=== PATIENT | male | born 1960 | race Caucasian/White ===

== ENCOUNTER 2020-10-01 12:12 | Observation (INO) | payer OTHER ==
[~2020-10-01] VITALS: Ht 177.8 cm; Wt 153.7 kg
[~2020-10-01 12:12] MED LIST: CEPH-264 PO
[2020-10-01 12:48] LABS: BASO % 0 % (0-3); EOS # 0.3 x10^3/uL (0.0-0.7); EOS % 4 % (0-3); HEMATOCRIT 45.1 % (39.0-53.0); HEMOGLOBIN 15.4 g/dL (13.0-17.5); LYMPH # 1.8 x10^3/uL (1.0-4.8); LYMPH % 24 % (24-48); MEAN CORPUSCULAR HEMOGLOBIN 30 pg (25-35); MEAN CORPUSCULAR HGB CONC 34 g/dL (31-37); MEAN CORPUSCULAR VOLUME 88 fL (79-100); MONO # 0.9 x10^3/uL (0.0-1.1); MONO % 12 % (0-9); NEUT # 4.6 x10^3/uL (1.8-7.7); NEUT % 60 % (31-73); PLATELET COUNT 240 x10^3/uL (140-400); RED BLOOD COUNT 5.12 x10^6/uL (4.30-5.70); RED CELL DISTRIBUTION WIDTH 13.4 % (11.5-14.5); WHITE BLOOD COUNT 7.7 x10^3/uL (4.0-11.0)
[2020-10-01 12:54] LABS: CALCIUM 8.9 mg/dL (8.5-10.1); CREATININE 0.8 mg/dL (0.7-1.3); GFR 98.6; POTASSIUM 3.7 mmol/L (3.5-5.1)
[2020-10-01 12:58] LABS: ALBUMIN 3.9 g/dL (3.4-5.0); MAGNESIUM 2.3 mg/dL (1.8-2.4); TOTAL BILIRUBIN 0.9 mg/dL (0.2-1.0); TOTAL PROTEIN 7.7 g/dL (6.4-8.2)
--- NOTE | 2020-10-01 13:00 | RAD ---
INDICATION: Reason: chest pain / Spl. Instructions: / History: COMPARISON: June 2003 FINDINGS: Single view of chest obtained. Enlarged cardiomediastinal silhouette. Left lung base is largely obscured by the overlying cardiac si lhouette with relative haziness at the lung bases. Mild interstitial opacities bilaterally. IMPRESSION: * Enlarged cardiomediastinal Silhouette which can be seen with cardiomegaly and/or pericardial effus ion. * Haziness at the lung bases. A portion of this is likely secondary to overlap of soft tissue struct ures but superimposed atelectasis or infiltrate is not excluded given this finding. There is also rula e mild interstitial opacities bilaterally which can be seen with mild pulmonary vascular congestion o r interstitial infiltrate. Electronically signed by: Crispin Wild MD (10/01/2020 12:57 PM) [id number]
--- NOTE | 2020-10-01 13:40 | EKG ---
[facility] [address] [place] [address] Test Date: 2020-10-01 Test Time: 12:18:00 Pat Name: LD BAIN Department: Room: Gender: M City Councilman: : 1960 Requested By: MIYA DE DIOS Order Number: [id number] Reading MD: Measurements Intervals [place] Rate: 69 P: 48 WI: 198 QRS: 8 QRSD: 88 T: 62 QT: 378 QTc: 406 Interpretive Statements SINUS RHYTHM NORMAL ECG RI6.01 No previous ECG available for comparison
[2020-10-01] MEDS ORDERED: IOHEXOL 350 MG/ML 100 ML VIAL. IV ONE (13:45)
[2020-10-01] MEDS ORDERED: CONTRAST GIVEN. MC PRN (13:45)
--- NOTE | 2020-10-01 14:42 | RAD ---
EXAM: CT angiography of the chest with intravenous contrast. HISTORY: Chest pain. Hypertension. TECHNIQUE: Computed tomographic images of the chest were obtained following the administration of int ravenous contrast according to angiography protocol. Multiplanar reformatting was performed and three dimensional maximum intensity projection images were obtained. *One or more of the following individualized dose reduction techniques were utilized for this examina tion: 1. Automated exposure control. 2. Adjustment of the mA and/or kV according to patient size. 3. Use of iterative reconstruction technique. COMPARISON: None. FINDINGS: There is no evidence of pulmonary embolism. There is no evidence of aortic aneurysm or aort ic dissection. There is a standard aortic arch branching pattern. The heart is mildly enlarged. There are slightly prominent hilar lymph nodes. These are likely physiologic or reactive. There is no infi ltrate, pleural effusion or pneumothorax. There is linear lingular and medial right middle lobe atele ctasis or scarring. There is also bilateral posterior dependent and basilar atelectasis. There is hep atic steatosis and hepatomegaly. There is a 1.7 cm exophytic lesion along the falx the right kidney, partially included on the [id number]-ry-qhhj. There is a tiny splenule along the inferior aspect of the sp tru. There are multilevel degenerative changes throughout the spine. There is no acute osseous findi ng. IMPRESSION: 1. No acute thoracic finding. 2. Mild cardiomegaly. 3. Hepatic steatosis and hepatomegaly. 4. 1.7 cm exophytic lesion along the upper pole the right kidney, partially included on the field-of- view. The attenuation of this lesion is greater than simple fluid. Renal sonography can be performed to assess for possible complex cystic or solid lesion. Electronically signed by: Mily Hurd MD (10/01/2020 2:40 PM) [facility]
--- NOTE | 2020-10-01 15:23 | PHYS DOC ---
Past Medical History Past Medical History: Diabetes-Type II, High Cholesterol, Hypertension, Other Additional Past Medical Histor: obesity Past Surgical History: Other Additional Past Surgical Histo: multiple back, r rotator cuff Smoking Status: Former Smoker Alcohol Use: Occasionally Drug Use: None General Adult EDM: Chief Complaint: CHEST PAIN HPI: HPI: Patient Is a 60 year old male who presented to ER due to substernal chest pain started today. Chest pain is sharp and stabbing in nature and lasted for a few seconds. The pain was worsened with exertion. Patient denies any cough or fever. Patient has history hypertension, UPON arrival to ER his blood pressure was really elevated. Patient denies any history of blood clot disorder. Patien t has history of high cholesterol. Review of Systems: Review of Systems: Constitutional: Denies fever or chills. [] Eyes: Denies change in visual acuity. [] HENT: Denies nasal congestion or sore throat. [] Respiratory: Denies cough or shortness of breath. [] Cardiovascular: Positive for chest pain, no edema GI: Denies abdominal pain, nausea, vomiting, bloody stools or diarrhea. [] : Denies dysuria. [] Musculoskeletal: Denies back pain or joint pain. [] Integument: Denies rash. [] Neurologic: Denies headache, focal weakness or sensory changes. [] Endocrine: Denies polyuria or polydipsia. [] Lymphatic: Denies swollen glands. [] Psychiatric: Denies depression or anxiety. [] Heart Score: C/O Chest Pain: Yes HEART Score for Chest Pain: HEART Score for Chest Pain Response (Comments) Value History Slighlty/Non-Suspicious 0 Age >45 - < 65 1 Risk Factors >3 Risk Factors or Hx CAD 2 Troponin < Normal Limit 0 Total 3 Risk Factors: Risk Factors: DM, Current or recent (<one month) smoker, HTN, HLP, family history of CAD, obesity. Risk Scores: Score 0 - 3: 2.5% MACE over next 6 weeks - Discharge Home Score 4 - 6: 20.3% MACE over next 6 weeks - Admit for Clinical Observation Score 7 - 10: 72.7% MACE over next 6 weeks - Early Invasive Strategies Current Medications: Current Medications Medications (Trade) Dose Ordered Sig/Lolita Start Time Stop Time Status Last Admin Dose Admin Info (CONTRAST GIVEN -- Rx MONITORING) 1 each PRN DAILY PRN 4/14/21 13:45 10/03/20 13:44 Iohexol (Omnipaque 350 Mg/ml) 100 ml 1X ONCE 10/01/20 13:45 10/01/20 13:46 DC 10/01/20 13:58 100 ML Allergies: Allergies: Allergies Coded Allergies Type Severity Reaction Last Updated Verified No Known Drug Allergies 02/01/16 No Physical Exam: PE: Constitutional: Well developed, well nourished, no acute distress, non-toxic appearance. [] HENT: Normocephalic, atraumatic, bilateral external ears normal, oropharynx moist, no oral exudates, nose normal. [] Eyes: PERRLA, EOMI, conjunctiva normal, no discharge. [] Neck: Normal range of motion, no tenderness, supple, no stridor. [] Cardiovascular:Heart rate regular rhythm, no murmur [] Lungs & Thorax: Bilateral breath sounds clear to auscultation [] Abdomen: Bowel sounds normal, soft, no tenderness, no masses, no pulsatile masses. [] Skin: Warm, dry, no erythema, no rash. [] Back: No tenderness, no CVA tenderness. [] Extremities: No tenderness, no cyanosis, no clubbing, ROM intact, no edema. [] Neurologic: Alert and oriented X 3, normal motor function, normal sensory function, no focal deficits noted. [] Psychologic: Affect normal, judgement normal, mood normal. [] Current Patient Data: Labs: Laboratory Tests Test 10/01/20 12:30 White Blood Count 7.7 x10^3/uL (4.0-11.0) Red Blood Count 5.12 x10^6/uL (4.30-5.70) Hemoglobin 15.4 g/dL (13.0-17.5) Hematocrit 45.1 % (39.0-53.0) Mean Corpuscular Volume 88 fL (79-100) Mean Corpuscular Hemoglobin 30 pg (25-35) Mean Corpuscular Hemoglobin Concent 34 g/dL (31-37) Red Cell Distribution Width 13.4 % (11.5-14.5) Platelet Count 240 x10^3/uL (140-400) Neutrophils (%) (Auto) 60 % (31-73) Lymphocytes (%) (Auto) 24 % (24-48) Monocytes (%) (Auto) 12 % (0-9) H Eosinophils (%) (Auto) 4 % (0-3) H Basophils (%) (Auto) 0 % (0-3) Neutrophils # (Auto) 4.6 x10^3/uL (1.8-7.7) Lymphocytes # (Auto) 1.8 x10^3/uL (1.0-4.8) Monocytes # (Auto) 0.9 x10^3/uL (0.0-1.1) Eosinophils # (Auto) 0.3 x10^3/uL (0.0-0.7) Basophils # (Auto) 0.0 x10^3/uL (0.0-0.2) Sodium Level 146 mmol/L (136-145) H Potassium Level 3.7 mmol/L (3.5-5.1) Chloride Level 106 mmol/L (98-107) Carbon Dioxide Level 26 mmol/L (21-32) Anion Gap 14 (6-14) Blood Urea Nitrogen 13 mg/dL (8-26) Creatinine 0.8 mg/dL (0.7-1.3) Estimated GFR (Cockcroft-Gault) 98.6 BUN/Creatinine Ratio 16 (6-20) Glucose Level 84 mg/dL (70-99) Calcium Level 8.9 mg/dL (8.5-10.1) Magnesium Level 2.3 mg/dL (1.8-2.4) Total Bilirubin 0.9 mg/dL (0.2-1.0) Aspartate Amino Transferase (AST) 30 U/L (15-37) Alanine Aminotransferase (ALT) 65 U/L (16-63) H Alkaline Phosphatase 95 U/L (46-116) Troponin I Quantitative < 0.017 ng/mL (0.000-0.055) TZ-Gak-Q-Type Natriuretic Peptide 185 pg/mL (0-124) H Total Protein 7.7 g/dL (6.4-8.2) Albumin 3.9 g/dL (3.4-5.0) Albumin/Globulin Ratio 1.0 (1.0-1.7) Lipase 102 U/L (73-393) Laboratory Tests 10/01/20 12:30 Laboratory Tests 10/01/20 12:30 Vital Signs: Vital Signs Date Time Temp Pulse Resp B/P (MAP) Pulse Ox O2 Delivery O2 Flow Rate FiO2 10/01/20 12:18 97.9 71 20 193/99 (130) 98 Room Air 97.9 EKG: EKG: EKG was done at 1218, heart rate of 69 bpm, sinus rhythm, normal ST segment , no ST segment elevation, normal axis. Radiology/Procedures: Radiology/Procedures: [][place] [id number] IMAGING REPORT Signed PATIENT: LD BAIN ACCOUNT: [id number] : 1960 LOCATION: ER AGE: 60 SEX: M EXAM STATUS: REG ER ORD. PHYSICIAN: MIYA DE DIOS DO REASON: LARGE MAS ON KIDNEY, FOUND ON CT SCAN CHEST PROCEDURE: RENAL COMPLETE BILATERAL Examination: Ultrasound kidneys HISTORY: History of right renal mass COMPARISON: None available FINDINGS: The right kidney measures 14.7 x 6.7 x 7.5 cm. The left kidney measures 16.3 x 5.1 x 5.8 cm. There is a cystic structure identified in the right kidney measuring 2.5 cm with some echogenicity within could be complex cyst. The urinary bladder is mildly distended. IMPRESSION: 1. Complex cyst measuring 2.5 cm right kidney. Recommend follow-up examination in 3-6 months to document stability. 2. Enlarged appearing bilateral kidneys. Electronically signed by: Zaire Angel MD (10/01/2020 3:58 PM) [id number] DICTATED and SIGNED BY: ZAIRE ANGEL MD DATE: 10/01/20 [id number] [place] [id number] [place], [place] [id number] IMAGING REPORT Signed PATIENT: LD BAIN ACCOUNT: [id number] : 1960 LOCATION: ER AGE: 60 SEX: M EXAM STATUS: REG ER ORD. PHYSICIAN: MIYA DE DIOS DO REASON: chest pain, hypertensive PROCEDURE: CT ANGIOGRAPHY CHEST EXAM: CT angiography of the chest with intravenous contrast. HISTORY: Chest pain. Hypertension. TECHNIQUE: Computed tomographic images of the chest were obtained following the administration of intravenous contrast according to angiography protocol. Multiplanar reformatting was performed and three dimensional maximum intensity projection images were obtained. *One or more of the following individualized dose reduction techniques were utilized for this examination: 1. Automated exposure control. 2. Adjustment of the mA and/or kV according to patient size. 3. Use of iterative reconstruction technique. COMPARISON: None. FINDINGS: There is no evidence of pulmonary embolism. There is no evidence of aortic aneurysm or aortic dissection. There is a standard aortic arch branching pattern. The heart is mildly enlarged. There are slightly prominent hilar lymph nodes. These are likely physiologic or reactive. There is no infiltrate, pleural effusion or pneumothorax. There is linear lingular and medial right middle lobe atelectasis or scarring. There is also bilateral posterior dependent and basilar atelectasis. There is hepatic steatosis and hepatomegaly. There is a 1.7 cm exophytic lesion along the falx the right kidney, partially included on the [id number]-hc-tyyd. There is a tiny splenule along the inferior aspect of the spleen. There are multilevel degenerative changes throughout the spine. There is no acute osseous finding. IMPRESSION: 1. No acute thoracic finding. 2. Mild cardiomegaly. 3. Hepatic steatosis and hepatomegaly. 4. 1.7 cm exophytic lesion along the upper pole the right kidney, partially included on the ohlon-pe-hchx. The attenuation of this lesion is greater than simple fluid. Renal sonography can be performed to assess for possible complex c ystic or solid lesion. Electronically signed by: Mily Parker MD (10/01/2020 2:40 PM) [facility] DICTATED and SIGNED BY: MILY PARKER MD DATE: 10/01/20 [id number] [facility] [address] [place] [address] IMAGING REPORT Signed PATIENT: LD BAIN ACCOUNT: [id number] : 1960 LOCATION: ER AGE: 60 SEX: M EXAM STATUS: REG ER ORD. PHYSICIAN: MIYA DE DIOS DO REASON: chest pain PROCEDURE: PORTABLE CHEST 1V INDICATION: Reason: chest pain / Spl. Instructions: / History: COMPARISON: June 2003 FINDINGS: Single view of chest obtained. Enlarged cardiomediastinal silhouette. Left lung base is largely obscured by the overlying cardiac silhouette with relative haziness at the lung bases. Mild interstitial opacities bilaterally. IMPRESSION: * Enlarged cardiomediastinal Silhouette which can be seen with cardiomegaly and/or pericardial effusion. * Haziness at the lung bases. A portion of this is likely secondary to overlap of soft tissue structures but superimposed atelectasis or infiltrate is not excluded given this finding. There is also some mild interstitial opacities bilaterally which can be seen with mild pulmonary vascular congestion or interstitial infiltrate. Electronically signed by: Isabell Laura MD (10/01/2020 12:57 PM) [id number] DICTATED and SIGNED BY: ISABELL LAURA MD DATE: 10/01/20 [id number] Course & Med Decision Making: Course & Med Decision Making Pertinent Labs and Imaging studies reviewed. (See chart for details) Patient is a 60-year-old male who presented to ER due to chest pain, patient blood pressure was elevated, CT of the chest did not show any acute problem, EKG came back normal so far. We will admit him for observation Dragon Disclaimer: Belkys Disclaimer: This electronic medical record was generated, in whole or in part, using a voice recognition dictation system. Departure Departure Impression: Primary Impression: Chest pain Disposition: ADMITTED INPATIENT Admitting Physician: CHERELLE (Dr. Rice) Condition: STABLE Referrals: OG HOPSON Jr, MD (PCP) MIYA DE DIOS DO Oct 01, 2020 15:23
--- NOTE | 2020-10-01 15:44 | PDOC1 ---
History and Physical Date of Admission Date of Admission DATE: 10/01/20 TIME: 15:52 Identification/Chief Complaint Chief Complaint ANTERIOR CHEST PAIN X 2 WEEKS, NOW MORE FREQUENT, ASSOCIATED WITH EXERTION History of Present Illness History of Present Illness 60 year old male who presented to ER due to substernal chest pain BEGAN 2 WEEKS AGO, WORSE TODAY, SOME RADIATION TO LEFT ARM. Chest pain is sharp and stabbing in nature and lasted for a few seconds. The pain was worsened with exertion. denies any cough or fever. Patient has history hypertension, UPON arrival to ER his blood pressure was elevated. TOOK 4 ASPIRIN AT HOME denies any history of blood clot disorder. Patient has history of high cholesterol. HAS HX TOBACCO ABUSE Mother had heart disease CTA CHEST NEG FOR PE Past Medical History Past Medical History Past Medical History Past Medical History Past Medical History: Diabetes-Type II, High Cholesterol, Hypertension, Other Additional Past Medical Histor: obesity Past Surgical History: Other Additional Past Surgical Histo: multiple back, r rotator cuff Smoking Status: Former Smoker Alcohol Use: Occasionally Drug Use: None fhx obesity Cardiovascular: Hyperlipidemia Family History Family History: Heart Disease, Hypertension Social History Smoke: Quit ALCOHOL: none Drugs: None Current Medications Current Medications Current Medications Iohexol (Omnipaque 350 Mg/ml) 100 ml 1X ONCE IV Last administered on 10/01/20at 13:58; Start 10/01/20 at 13:45; Stop 10/01/20 at 13:46; Status DC Info (CONTRAST GIVEN -- Rx MONITORING) 1 each PRN DAILY PRN MC SEE COMMENTS; Start 10/01/20 at 13:45; Stop 10/03/20 at 13:44 Active Scripts Active Keflex (Cephalexin) 500 Mg Capsule 1 Cap PO BID Allergies Allergies: Coded Allergies: No Known Drug Allergies (Unverified , 02/01/16) ROS Review of System 14 pt ros otheriise neg General: No: Chills, Night Sweats, Fatigue, Malaise, Appetite, Other PSYCHOLOGICAL ROS: No: Anxiety, Behavioral Disorder, Concentration difficultie, Decreased libido, Depression, Disorientation, Hallucinations, Hostility, Irritablity, Memory difficulties, Mood Swings, Obsessive thoughts, Physical abuse, Sexual abuse, Sleep disturbances, Suicidal ideation, Other Eyes: No Blurry vision, No Decreased vision, No Double vision, No Dry eyes, No Excessive tearing, No Eye Pain, No Itchy Eyes, No Loss of vision, No Photophobia, No Scotomata, No Uses contacts, No Uses glasses, No Other HEENT: No: Heacaches, Visual Changes, Hearing change, Nasal congestion, Nasal discharge, Oral lesions, Sinus pain, Sore Throat, Epistaxis, Sneezing, Snoring, Tinnitus, Vertigo, Vocal changes, Other ALLERGY AND IMMUNOLOGY: No: Hives, Insect Bite Sensitivity, Itchy/Watery Eyes, Nasal Congestion, Post Nasal Drip, Seasonal Allergies, Other Hematological and Lymphatic: No: Bleeding Problems, Blood Clots, Blood Transfusions, Brusing, Night Sweats, Pallor, Swollen Lymph Nodes, Other ENDOCRINE: No: Breast Changes, Galactorrhea, Hair Pattern Changes, Hot Flashes, Malaise/lethargy, Mood Swings, Palpitations, Polydipsia/polyuria, Skin Changes, Temperature Intolerance, Unexpected Weight Changes, Other Breast: No New/Changing Breast Lumps, No Nipple changes, No Nipple discharge, No Other Respiratory: No: Cough, Hemoptysis, Orthopnea, Pleuritic Pain, Shortness of breath, SOB with excertion, Sputum Changes, Stridor, Tachypnea, Wheezing, Other Cardiovascular: yes Chest Pain; No Palpitations, No Orthopnea, No Paroxysmal Noc. Dyspnea, No Edema, No Lt Headedness, No Other Gastrointestinal: No Nausea, No Vomiting, No Abdominal Pain, No Diarrhea, No Constipation, No Melena, No Hematochezia, No Other Genitourinary: No Dysuria, No Frequency, No Incontinence, No Hematuria, No Rete ntion, No Discharge, No Urgency, No Pain, No Flank Pain, No Other, No , No , No , No , No , No , No Musculoskeletal: No Gait Disturbance, No Joint Pain, No Joint Stiffness, No Joint Swelling, No Muscle Pain, No Muscular Weakness, No Pain In:, No Swelling In:, No Other Neurological: No Behavorial Changes, No Bowel/Bladder ControlChng, No Confusion, No Dizziness, No Gait Disturbance, No Headaches, No Impaired Coord/balance, No Memory Loss, No Numbness/Tingling, No Seizures, No Speech Problems, No Tremors, No Visual Changes, No Weakness, No Other Skin: No Dry Skin, No Eczema, No Hair Changes, No Lumps, No Mole Changes, No Mottling, No Nail Changes, No Pruritus, No Rash, No Skin Lesion Changes, No Other, No Acne Physical Exam General: Alert, Oriented X3, Cooperative, No acute distress HEENT: Atraumatic, PERRLA, EOMI, Mucous membr. moist/pink Lungs: Clear to auscultation Heart: S1S2, RRR, no thrills, no gallops, no murmurs Cardiovascular: S1, S2 Breasts: Not examined Abdomen: Normal bowel sounds, Soft, Other (VERY OBESE) Rectal Exam: not examined, deferred Extremities: No cyanosis, No tenderness/swelling Skin: No significant lesion Neuro: Normal speech, Strength at 5/5 X4 ext, Normal tone, Sensation intact, Cranial nerves 3-12 NL Psych/Mental Status: Mental status NL, Mood NL Vitals Vitals Vital Signs Date Time Temp Pulse Resp B/P (MAP) Pulse Ox O2 Delivery O2 Flow Rate FiO2 10/01/20 12:18 97.9 71 20 193/99 (130) 98 Room Air 97.9 Labs Labs Laboratory Tests Test 10/01/20 12:30 White Blood Count 7.7 x10^3/uL (4.0-11.0) Red Blood Count 5.12 x10^6/uL (4.30-5.70) Hemoglobin 15.4 g/dL (13.0-17.5) Hematocrit 45.1 % (39.0-53.0) Mean Corpuscular Volume 88 fL (79-100) Mean Corpuscular Hemoglobin 30 pg (25-35) Mean Corpuscular Hemoglobin Concent 34 g/dL (31-37) Red Cell Distribution Width 13.4 % (11.5-14.5) Platelet Count 240 x10^3/uL (140-400) Neutrophils (%) (Auto) 60 % (31-73) Lymphocytes (%) (Auto) 24 % (24-48) Monocytes (%) (Auto) 12 % (0-9) Eosinophils (%) (Auto) 4 % (0-3) Basophils (%) (Auto) 0 % (0-3) Neutrophils # (Auto) 4.6 x10^3/uL (1.8-7.7) Lymphocytes # (Auto) 1.8 x10^3/uL (1.0-4.8) Monocytes # (Auto) 0.9 x10^3/uL (0.0-1.1) Eosinophils # (Auto) 0.3 x10^3/uL (0.0-0.7) Basophils # (Auto) 0.0 x10^3/uL (0.0-0.2) Sodium Level 146 mmol/L (136-145) Potassium Level 3.7 mmol/L (3.5-5.1) Chloride Level 106 mmol/L (98-107) Carbon Dioxide Level 26 mmol/L (21-32) Anion Gap 14 (6-14) Blood Urea Nitrogen 13 mg/dL (8-26) Creatinine 0.8 mg/dL (0.7-1.3) Estimated GFR (Cockcroft-Gault) 98.6 BUN/Creatinine Ratio 16 (6-20) Glucose Level 84 mg/dL (70-99) Calcium Level 8.9 mg/dL (8.5-10.1) Magnesium Level 2.3 mg/dL (1.8-2.4) Total Bilirubin 0.9 mg/dL (0.2-1.0) Aspartate Amino Transf (AST/SGOT) 30 U/L (15-37) Alanine Aminotransferase (ALT/SGPT) 65 U/L (16-63) Alkaline Phosphatase 95 U/L (46-116) Troponin I Quantitative < 0.017 ng/mL (0.000-0.055) WV-Abx-H-Type Natriuretic Peptide 185 pg/mL (0-124) Total Protein 7.7 g/dL (6.4-8.2) Albumin 3.9 g/dL (3.4-5.0) Albumin/Globulin Ratio 1.0 (1.0-1.7) Lipase 102 U/L (73-393) Laboratory Tests Test 10/01/20 12:30 White Blood Count 7.7 x10^3/uL (4.0-11.0) Red Blood Count 5.12 x10^6/uL (4.30-5.70) Hemoglobin 15.4 g/dL (13.0-17.5) Hematocrit 45.1 % (39.0-53.0) Mean Corpuscular Volume 88 fL (79-100) Mean Corpuscular Hemoglobin 30 pg (25-35) Mean Corpuscular Hemoglobin Concent 34 g/dL (31-37) Red Cell Distribution Width 13.4 % (11.5-14.5) Platelet Count 240 x10^3/uL (140-400) Neutrophils (%) (Auto) 60 % (31-73) Lymphocytes (%) (Auto) 24 % (24-48) Monocytes (%) (Auto) 12 % (0-9) Eosinophils (%) (Auto) 4 % (0-3) Basophils (%) (Auto) 0 % (0-3) Neutrophils # (Auto) 4.6 x10^3/uL (1.8-7.7) Lymphocytes # (Auto) 1.8 x10^3/uL (1.0-4.8) Monocytes # (Auto) 0.9 x10^3/uL (0.0-1.1) Eosinophils # (Auto) 0.3 x10^3/uL (0.0-0.7) Basophils # (Auto) 0.0 x10^3/uL (0.0-0.2) Sodium Level 146 mmol/L (136-145) Potassium Level 3.7 mmol/L (3.5-5.1) Chloride Level 106 mmol/L (98-107) Carbon Dioxide Level 26 mmol/L (21-32) Anion Gap 14 (6-14) Blood Urea Nitrogen 13 mg/dL (8-26) Creatinine 0.8 mg/dL (0.7-1.3) Estimated GFR (Cockcroft-Gault) 98.6 BUN/Creatinine Ratio 16 (6-20) Glucose Level 84 mg/dL (70-99) Calcium Level 8.9 mg/dL (8.5-10.1) Magnesium Level 2.3 mg/dL (1.8-2.4) Total Bilirubin 0.9 mg/dL (0.2-1.0) Aspartate Amino Transf (AST/SGOT) 30 U/L (15-37) Alanine Aminotransferase (ALT/SGPT) 65 U/L (16-63) Alkaline Phosphatase 95 U/L (46-116) Troponin I Quantitative < 0.017 ng/mL (0.000-0.055) DK-Kka-S-Type Natriuretic Peptide 185 pg/mL (0-124) Total Protein 7.7 g/dL (6.4-8.2) Albumin 3.9 g/dL (3.4-5.0) Albumin/Globulin Ratio 1.0 (1.0-1.7) Lipase 102 U/L (73-393) Images Images INDICATION: Reason: chest pain / Spl. Instructions: / History: COMPARISON: June 2003 FINDINGS: Single view of chest obtained. Enlarged cardiomediastinal silhouette. Left lung base is largely obscured by the overlying cardiac silhouette with relative haziness at the lung bases. Mild interstitial opacities bilaterally. IMPRESSION: * Enlarged cardiomediastinal Silhouette which can be seen with cardiomegaly and/or pericardial effusion. * Haziness at the lung bases. A portion of this is likely secondary to overlap of soft tissue structures but superimposed atelectasis or infiltrate is not excluded given this finding. There is also some mild interstitial opacities bilaterally which can be seen with mild pulmonary vascular congestion or inte rstitial infiltrate. Electronically signed by: Isabell Laura MD (10/01/2020 12:57 PM) [id number] DICTATED and SIGNED BY: ISABELL LAURA MD DATE: 10/01/20 [id number] Examination: Ultrasound kidneys HISTORY: History of right renal mass COMPARISON: None available FINDINGS: The right kidney measures 14.7 x 6.7 x 7.5 cm. The left kidney measures 16.3 x 5.1 x 5.8 cm. There is a cystic structure identified in the right kidney measuring 2.5 cm with some echogenicity within could be complex cyst. The urinary bladder is mildly distended. IMPRESSION: 1. Complex cyst measuring 2.5 cm right kidney. Recommend follow-up examination in 3-6 months to document stability. 2. Enlarged appearing bilateral kidneys. Electronically signed by: Zaire Angel MD (10/01/2020 3:58 PM) [id number] DICTATED and SIGNED BY: ZAIRE ANGEL MD DATE: 10/01/20 [id number] 0 EXAM: CT angiography of the chest with intravenous contrast. HISTORY: Chest pain. Hypertension. TECHNIQUE: Computed tomographic images of the chest were obtained following the administration of intravenous contrast according to angiography protocol. Multiplanar reformatting was performed and three dimensional maximum intensity projection images were obtained. *One or more of the following individualized dose reduction techniques were uti lized for this examination: 1. Automated exposure control. 2. Adjustment of the mA and/or kV according to patient size. 3. Use of iterative reconstruction technique. COMPARISON: None. FINDINGS: There is no evidence of pulmonary embolism. There is no evidence of aortic aneurysm or aortic dissection. There is a standard aortic arch branching pattern. The heart is mildly enlarged. There are slightly prominent hilar lymph nodes. These are likely physiologic or reactive. There is no infiltrate, pleural effusion or pneumothorax. There is linear lingular and medial right middle lobe atelectasis or scarring. There is also bilateral posterior dependent and basilar atelectasis. There is hepatic steatosis and hepatomegaly. There is a 1.7 cm exophytic lesion along the falx the right kidney, partially included on the [id number]. There is a tiny splenule along the inferior aspect of the spleen. There are multilevel degenerative changes throughout the spine. There is no acute osseous finding. IMPRESSION: 1. No acute thoracic finding. 2. Mild cardiomegaly. 3. Hepatic steatosis and hepatomegaly. 4. 1.7 cm exophytic lesion along the upper pole the right kidney, partially included on the [id number]. The attenuation of this lesion is greater than simple fluid. Renal sonography can be performed to assess for possible complex cystic or solid lesion. Electronically signed by: Mily Parker MD (10/01/2020 2:40 PM) [facility] DICTATED and SIGNED BY: MILY PARKER MD DATE: 10/01/20 [id number] 0 VTE Prophylaxis Ordered VTE Prophylaxis Devices: Yes VTE Pharmacological Prophylaxi: Yes Assessment/Plan Assessment/Plan Impression: Chest pain with typical and atypical features, risk factors age, sex. obesity, HTN, DAVONTE HYPERTENSIVE URGENCY MORBID OBESITY DAVONTE GERD CTA CHEST NEG PE Hepatic steatosis ADMITTED Cardiology consult serial troponin echo iv bp control UDS PO PROTONIX SL NTG 0.4 MG Q 1 HR PRN DVT PROPHYLAXIS D/W ER DR Justifications for Admission Other Justification MARY DOMINGUEZ MD Oct 01, 2020 15:44
[2020-10-01] MEDS ORDERED: METOPROLOL IV PUSH 5 MG/5 ML VIAL. IVP ONE (16:00)
--- NOTE | 2020-10-01 16:00 | RAD ---
Examination: Ultrasound kidneys HISTORY: History of right renal mass COMPARISON: None available FINDINGS: The right kidney measures 14.7 x 6.7 x 7.5 cm. The left kidney measures 16.3 x 5.1 x 5.8 cm. There is a cystic structure identified in the right kidney measuring 2.5 cm with some echogenicity within cou ld be complex cyst. The urinary bladder is mildly distended. IMPRESSION: 1. Complex cyst measuring 2.5 cm right kidney. Recommend follow-up examination in 3-6 months to docum ent stability. 2. Enlarged appearing bilateral kidneys. Electronically signed by: Zaire Angel MD (10/01/2020 3:58 PM) [id number]
[2020-10-01] MEDS ORDERED: ONDANSETRON PF 4 MG/2 ML VIAL. IV PRN (17:30)
[2020-10-01] MEDS ORDERED: MAG HYDROX/ALUMINUM HYD/SIMETH 30 ML ORAL.SUSP PO PRN (17:30)
[2020-10-01] MEDS ORDERED: ALBUTEROL SULFATE 2.5 MG/3 ML NEBU. NEB PRN (17:30)
[2020-10-01] MEDS ORDERED: cloNIDine HCL 0.1 MG TABLET PO PRN (17:30)
[2020-10-01] MEDS ORDERED: DOCUSATE SODIUM 100 MG CAPSULE. PO PRN (17:30)
[2020-10-01] MEDS ORDERED: LORazepam 0.5 MG TABLET PO PRN (17:30)
[2020-10-01] MEDS ORDERED: guaiFENesin ORAL 200 MG/10 ML LIQUID. PO PRN (17:30)
[2020-10-01] MEDS ORDERED: 0.9 % SODIUM CHLORIDE 10 ML DISP.SYRIN. IV PRN (17:30)
[2020-10-01] MEDS ORDERED: SODIUM PHOSPHATES 19/7GM 133 ML ENEMA. PR PRN (17:30)
[2020-10-01] MEDS ORDERED: IV NORMAL SALINE 1000ML BAG 1,000 ML IV SCH (17:30)
[2020-10-01] MEDS ORDERED: NITROGLYCERIN SUBLINGUAL 0.4 MG BOTTLE OF 25. SL PRN (17:30)
[2020-10-01] MEDS: LISINOPRIL 5 MG TABLET. PO SCH ×2 (17:45→21:26)
[2020-10-01] MEDS: amLODIPine BESYLATE 5 MG TABLET PO SCH (17:45)
[2020-10-01] MEDS: PANTOPRAZOLE 40 MG TABLET.DR. PO SCH (18:36)
[2020-10-01 19:38] VITALS: BP 175/105
[2020-10-01] MEDS ORDERED: PRAV40TA2 PO (20:05)
[2020-10-01] MEDS ORDERED: DICL75TA PO (20:05)
[2020-10-01] MEDS ORDERED: LOSA100T14 PO (20:05)
[2020-10-01] MEDS: ENOXAPARIN 40 MG/0.4 ML SYRINGE. SQ SCH (21:26)
[2020-10-01 23:11] VITALS: BP 127/66
[2020-10-02] VITALS (8 sets, daily range): BP systolic 142–193; BP diastolic 81–108
[2020-10-02] MEDS: PANTOPRAZOLE 40 MG TABLET.DR. PO SCH (08:53)
[2020-10-02] MEDS: amLODIPine BESYLATE 5 MG TABLET PO SCH (08:53)
[2020-10-02] MEDS: LISINOPRIL 5 MG TABLET. PO SCH (08:54)
[2020-10-02] MEDS: ENOXAPARIN 40 MG/0.4 ML SYRINGE. SQ SCH ×2 (08:54→20:54)
--- NOTE | 2020-10-02 09:23 | PDOC2 ---
YOSHI GAYTAN [employer] 10/02/20 0923: CARDIAC CONSULT DATE OF CONSULT Date of Consult DATE: 10/02/20 TIME: 09:17 REASON FOR CONSULT Reason for Consult: Chest pain REFERRING PHYSICIAN Referring Physician: Dr. Rice SOURCE Source: Chart review, Patient HISTORY OF PRESENT ILLNESS HISTORY OF PRESENT ILLNESS This is a 60 yo male who presented secondary to chest pain. Reports intermittent stabbing, pressure in his central chest for the last month. Usually occurs once per week. Lasts 15 seconds and resolves without intervention. Yesterday, pain occurred multiple times so he came to the ED for further evaluation and treatment. Pain associated with mild shortness of breath. No dizziness, diaphoresis, palpitations, or nausea/vomiting. Pain is also non-radiating. Blood pressure significantly elevated upon arrival. No recent cardiac workup. PAST MEDICAL HISTORY Cardiovascular: HTN, Hyperlipidemia Pulmonary: Other (DAVONTE) CENTRAL NERVOUS SYSTEM: Periperal neuropathy Musculoskeletal: Osteoarthritis PAST SURGICAL HISTORY Past Surgical History: Other (lumber back surgery ) FAMILY HISTORY Family History: Heart Disease (07/10) SOCIAL HISTORY Smoke: Quit ALCOHOL: none Drugs: None Lives: with Family CURRENT MEDICATIONS CURRENT MEDICATIONS Current Medications Medications (Trade) Dose Ordered Sig/Lolita Route PRN Reason Start Time Stop Time Status Last Admin Dose Admin Iohexol (Omnipaque 350 Mg/ml) 100 ml 1X ONCE IV 10/01/20 13:45 10/01/20 13:46 DC 10/01/20 13:58 Pantoprazole Sodium (Protonix) 40 mg DAILYAC PO 10/01/20 17:30 10/02/20 08:53 Sodium Chloride 1,000 ml @ 100 mls/hr Q10H IV 10/01/20 17:30 10/01/20 18:36 Enoxaparin Sodium (Lovenox 40mg Syringe) 40 mg Q12HR SQ 10/01/20 21:00 10/02/20 08:54 Amlodipine Besylate (Norvasc) 5 mg DAILY PO 10/01/20 17:45 10/02/20 08:53 Lisinopril (Prinivil) 2.5 mg BID PO 10/01/20 17:45 10/02/20 08:54 ALLERGIES ALLERGIES: Coded Allergies: No Known Drug Allergies (Unverified , 02/01/16) ROS Review of System 14 point ROS conducted with pertinent positives noted above in HPI PHYSICAL EXAM General: Alert, Oriented X3, Cooperative, No acute distress HEENT: Atraumatic, Mucous membr. moist/pink Lungs: Clear to auscultation Heart: Regular rate Abdomen: Soft, No tenderness, Other (obese ) Extremities: No edema, Normal pulses Skin: No significant lesion Neuro: Normal speech, Sensation intact Psych/Mental Status: Mental status NL, Mood NL MUSCULOSKELETAL: Osteoarthritic changes both hands VITALS/I&O VITALS/I&O: Vital Signs Date Time Temp Pulse Resp B/P (MAP) Pulse Ox O2 Delivery O2 Flow Rate FiO2 10/02/20 08:54 72 179/106 10/02/20 07:00 98.1 20 95 Room Air 98.1 I & O 10/01/20 10/01/20 10/02/20 15:00 23:00 07:00 Intake Total 250 ml 100 ml Balance 250 ml 100 ml LABS Lab: Laboratory Tests Test 10/01/20 12:30 10/01/20 16:16 10/01/20 18:49 White Blood Count 7.7 x10^3/uL (4.0-11.0) Red Blood Count 5.12 x10^6/uL (4.30-5.70) Hemoglobin 15.4 g/dL (13.0-17.5) Hematocrit 45.1 % (39.0-53.0) Mean Corpuscular Volume 88 fL (79-100) Mean Corpuscular Hemoglobin 30 pg (25-35) Mean Corpuscular Hemoglobin Concent 34 g/dL (31-37) Red Cell Distribution Width 13.4 % (11.5-14.5) Platelet Count 240 x10^3/uL (140-400) Neutrophils (%) (Auto) 60 % (31-73) Lymphocytes (%) (Auto) 24 % (24-48) Monocytes (%) (Auto) 12 % (0-9) H Eosinophils (%) (Auto) 4 % (0-3) H Basophils (%) (Auto) 0 % (0-3) Neutrophils # (Auto) 4.6 x10^3/uL (1.8-7.7) Lymphocytes # (Auto) 1.8 x10^3/uL (1.0-4.8) Monocytes # (Auto) 0.9 x10^3/uL (0.0-1.1) Eosinophils # (Auto) 0.3 x10^3/uL (0.0-0.7) Basophils # (Auto) 0.0 x10^3/uL (0.0-0.2) Sodium Level 146 mmol/L (136-145) H Potassium Level 3.7 mmol/L (3.5-5.1) Chloride Level 106 mmol/L (98-107) Carbon Dioxide Level 26 mmol/L (21-32) Anion Gap 14 (6-14) Blood Urea Nitrogen 13 mg/dL (8-26) Creatinine 0.8 mg/dL (0.7-1.3) Estimated GFR (Cockcroft-Gault) 98.6 BUN/Creatinine Ratio 16 (6-20) Glucose Level 84 mg/dL (70-99) Calcium Level 8.9 mg/dL (8.5-10.1) Magnesium Level 2.3 mg/dL (1.8-2.4) Total Bilirubin 0.9 mg/dL (0.2-1.0) Aspartate Amino Transferase (AST) 30 U/L (15-37) Alanine Aminotransferase (ALT) 65 U/L (16-63) H Alkaline Phosphatase 95 U/L (46-116) Troponin I Quantitative < 0.017 ng/mL (0.000-0.055) < 0.017 ng/mL (0.000-0.055) < 0.017 ng/mL (0.000-0.055) PV-Xfr-I-Type Natriuretic Peptide 185 pg/mL (0-124) H Total Protein 7.7 g/dL (6.4-8.2) Albumin 3.9 g/dL (3.4-5.0) Albumin/Globulin Ratio 1.0 (1.0-1.7) Lipase 102 U/L (73-393) Laboratory Tests 10/01/20 12:30 Laboratory Tests 10/01/20 12:30 ASSESSMENT/PLAN ASSESSMENT/PLAN 1. Chest pain, atypical. AMI ruled out. Most probable secondary to #2 2. Hypertensive urgency; remains labile 3. Hyperlipidemia; statin therapy 4. DAVONTE with CPAP 5. Obesity 6. H/o tobaccoism with recent remission Recommendations ASA Lipids BP control Resume home losartan Amlodipine added Hydralazine IV PRN Baseline echo to assess LV systolic function Probable outpatient ischemic evaluation Supportive care LAKESHA STOUT MD 10/04/20 0800: CARDIAC CONSULT ASSESSMENT/PLAN ASSESSMENT/PLAN Late entry for 10/02/2020 Pt. seen and examined. Agree with above ANALYSIS [employer]NSH[employer] note. Supportive care. YOSHI GAYTAN APRN Oct 02, 2020 09:23 LAKESHA STOUT MD Oct 04, 2020 08:00
[2020-10-02] MEDS ORDERED: LISINOPRIL 20 MG TABLET PO SCH (09:30)
--- NOTE | 2020-10-02 09:44 | PDOC ---
PROGRESS NOTES Date of Service: DATE: 10/02/20 TIME: 09:44 Chief Complaint Chief Complaint VTE Prophylaxis Ordered VTE Prophylaxis Devices: Yes VTE Pharmacological Prophylaxi: Yes Assessment/Plan Assessment/Plan Impression: Chest pain with typical and atypical features, risk factors age, sex. 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 Chest pain is sharp and stabbing in nature and lasted for a few seconds. The pain was worsened with exertion. denies any cough or fever. Patient has history hypertension, UPON arrival to ER his blood pressure was elevated. TOOK 4 ASPIRIN AT HOME denies any history of blood clot disorder. Patient has history of high cholesterol. HAS HX TOBACCO ABUSE Mother had heart disease CTA CHEST NEG FOR PE Past Medical History Past Medical History Past Medical History Past Medical History Past Medical History: Diabetes-Type II, High Cholesterol, Hypertension, Other Additional Past Medical Histor: obesity Past Surgical History: Other Additional Past Surgical Histo: multiple back, r rotator cuff Smoking Status: Former Smoker Alcohol Use: Occasionally Drug Use: None fhx obesity Cardiovascular: Hyperlipidemia Family History Family History: Heart Disease, Hypertension Social History Smoke: Quit ALCOHOL: none Drugs: None Current Medications Current Medications Current Medications Iohexol (Omnipaque 350 Mg/ml) 100 ml 1X ONCE IV Last administered on 10/01/20at 13:58; Start 10/01/20 at 13:45; Stop 10/01/20 at 13:46; Status DC Info (CONTRAST GIVEN -- Rx MONITORING) 1 each PRN DAILY PRN MC SEE COMMENTS; Start 10/01/20 at 13:45; Stop 10/03/20 at 13:44 Active Scripts Active Keflex (Cephalexin) 500 Mg Capsule 1 Cap PO BID Allergies Allergies: Coded Allergies: No Known Drug Allergies (Unverified , 02/01/16) ROS Review of System 14 pt ros otheriise neg General: No: Chills, Night Sweats, Fatigue, Malaise, Appetite, Other PSYCHOLOGICAL ROS: No: Anxiety, Behavioral Disorder, Concentration difficultie, Decreased libido, Depression, Disorientation, Hallucinations, Hostility, Irritablity, Memory difficulties, Mood Swings, Obsessive thoughts, Physical abuse, Sexual abuse, Sleep disturbances, Suicidal ideation, Other Eyes: No Blurry vision, No Decreased vision, No Double vision, No Dry eyes, No Excessive tearing, No Eye Pain, No Itchy Eyes, No Loss of vision, No Photophobia, No Scotomata, No Uses contacts, No Uses glasses, No Other HEENT: No: Heacaches, Visual Changes, Hearing change, Nasal congestion, Nasal discharge, Oral lesions, Sinus pain, Sore Throat, Epistaxis, Sneezing, Snoring, Tinnitus, Vertigo, Vocal changes, Other ALLERGY AND IMMUNOLOGY: No: Hives, Insect Bite Sensitivity, Itchy/Watery Eyes, Nasal Congestion, Post Nasal Drip, Seasonal Allergies, Other Hematological and Lymphatic: No: Bleeding Problems, Blood Clots, Blood Transfusions, Brusing, Night Sweats, Pallor, Swollen Lymph Nodes, Other ENDOCRINE: No: Breast Changes, Galactorrhea, Hair Pattern Changes, Hot Flashes, Malaise/lethargy, Mood Swings, Palpitations, Polydipsia/polyuria, Skin Changes, Temperature Intolerance, Unexpected Weight Changes, Other Breast: No New/Changing Breast Lumps, No Nipple changes, No Nipple discharge, No Other Respiratory: No: Cough, Hemoptysis, Orthopnea, Pleuritic Pain, Shortness of breath, SOB with excertion, Sputum Changes, Stridor, Tachypnea, Wheezing, Other Cardiovascular: yes Chest Pain; No Palpitations, No Orthopnea, No Paroxysmal Noc. Dyspnea, No Edema, No Lt Headedness, No Other Gastrointestinal: No Nausea, No Vomiting, No Abdominal Pain, No Diarrhea, No Constipation, No Melena, No Hematochezia, No Other Genitourinary: No Dysuria, No Frequency, No Incontinence, No Hematuria, No Retention, No Discharge, No Urgency, No Pain, No Flank Pain, No Other, No , No , No , No , No , No , No Musculoskeletal: No Gait Disturbance, No Joint Pain, No Joint Stiffness, No Joint Swelling, No Muscle Pain, No Muscular Weakness, No Pain In:, No Swelling In:, No Other Neurological: No Behavorial Changes, No Bowel/Bladder ControlChng, No Confusion, No Dizziness, No Gait Disturbance, No Headaches, No Impaired Coord/balance, No Memory Loss, No Numbness/Tingling, No Seizures, No Speech Problems, No Tremors, No Visual Changes, No Weakness, No Other Skin: No Dry Skin, No Eczema, No Hair Changes, No Lumps, No Mole Changes, No Mottling, No Nail Changes, No Pruritus, No Rash, No Skin Lesion Changes, No Other, No Acne Vitals Vitals Vital Signs Date Time Temp Pulse Resp B/P (MAP) Pulse Ox O2 Delivery O2 Flow Rate FiO2 10/02/20 08:54 72 179/106 10/02/20 07:00 98.1 20 95 Room Air 98.1 Physical Exam Physical Exam Physical Exam General: Alert, Oriented X3, Cooperative, No acute distress HEENT: Atraumatic, PERRLA, EOMI, Mucous membr. moist/pink Lungs: Clear to auscultation Heart: S1S2, RRR, no thrills, no gallops, no murmurs Cardiovascular: S1, S2 Breasts: Not examined Abdomen: Normal bowel sounds, Soft, Other (VERY OBESE) Rectal Exam: not examined, deferred Extremities: No cyanosis, No tenderness/swelling Skin: No significant lesion Neuro: Normal speech, Strength at 5/5 X4 ext, Normal tone, Sensation intact, Cranial nerves 3-12 NL Psych/Mental Status: Mental status NL, Mood NL General: Alert, Oriented X3, Cooperative, No acute distress Heart: Regular rate, No murmurs Abdomen: Normal bowel sounds, Soft, Other (VERY OBESE) Extremities: No clubbing, No cyanosis, No tenderness/swelling Skin: No significant lesion Labs LABS Laboratory Tests Test 10/01/20 12:30 10/01/20 16:16 10/01/20 18:49 White Blood Count 7.7 x10^3/uL (4.0-11.0) Red Blood Count 5.12 x10^6/uL (4.30-5.70) Hemoglobin 15.4 g/dL (13.0-17.5) Hematocrit 45.1 % (39.0-53.0) Mean Corpuscular Volume 88 fL (79-100) Mean Corpuscular Hemoglobin 30 pg (25-35) Mean Corpuscular Hemoglobin Concent 34 g/dL (31-37) Red Cell Distribution Width 13.4 % (11.5-14.5) Platelet Count 240 x10^3/uL (140-400) Neutrophils (%) (Auto) 60 % (31-73) Lymphocytes (%) (Auto) 24 % (24-48) Monocytes (%) (Auto) 12 % (0-9) Eosinophils (%) (Auto) 4 % (0-3) Basophils (%) (Auto) 0 % (0-3) Neutrophils # (Auto) 4.6 x10^3/uL (1.8-7.7) Lymphocytes # (Auto) 1.8 x10^3/uL (1.0-4.8) Monocytes # (Auto) 0.9 x10^3/uL (0.0-1.1) Eosinophils # (Auto) 0.3 x10^3/uL (0.0-0.7) Basophils # (Auto) 0.0 x10^3/uL (0.0-0.2) Sodium Level 146 mmol/L (136-145) Potassium Level 3.7 mmol/L (3.5-5.1) Chloride Level 106 mmol/L (98-107) Carbon Dioxide Level 26 mmol/L (21-32) Anion Gap 14 (6-14) Blood Urea Nitrogen 13 mg/dL (8-26) Creatinine 0.8 mg/dL (0.7-1.3) Estimated GFR (Cockcroft-Gault) 98.6 BUN/Creatinine Ratio 16 (6-20) Glucose Level 84 mg/dL (70-99) Calcium Level 8.9 mg/dL (8.5-10.1) Magnesium Level 2.3 mg/dL (1.8-2.4) Total Bilirubin 0.9 mg/dL (0.2-1.0) Aspartate Amino Transf (AST/SGOT) 30 U/L (15-37) Alanine Aminotransferase (ALT/SGPT) 65 U/L (16-63) Alkaline Phosphatase 95 U/L (46-116) Troponin I Quantitative < 0.017 ng/mL (0.000-0.055) < 0.017 ng/mL (0.000-0.055) < 0.017 ng/mL (0.000-0.055) OL-Vkk-F-Type Natriuretic Peptide 185 pg/mL (0-124) Total Protein 7.7 g/dL (6.4-8.2) Albumin 3.9 g/dL (3.4-5.0) Albumin/Globulin Ratio 1.0 (1.0-1.7) Lipase 102 U/L (73-393) Assessment and Plan Assessmemt and Plan Problems Medical Problems: (1) Chest pain Status: Acute Comment Review of Relevant I have reviewed the following items florina (where applicable) has been applied. Labs Laboratory Tests Test 10/01/20 12:30 10/01/20 16:16 10/01/20 18:49 White Blood Count 7.7 x10^3/uL (4.0-11.0) Red Blood Count 5.12 x10^6/uL (4.30-5.70) Hemoglobin 15.4 g/dL (13.0-17.5) Hematocrit 45.1 % (39.0-53.0) Mean Corpuscular Volume 88 fL (79-100) Mean Corpuscular Hemoglobin 30 pg (25-35) Mean Corpuscular Hemoglobin Concent 34 g/dL (31-37) Red Cell Distribution Width 13.4 % (11.5-14.5) Platelet Count 240 x10^3/uL (140-400) Neutrophils (%) (Auto) 60 % (31-73) Lymphocytes (%) (Auto) 24 % (24-48) Monocytes (%) (Auto) 12 % (0-9) Eosinophils (%) (Auto) 4 % (0-3) Basophils (%) (Auto) 0 % (0-3) Neutrophils # (Auto) 4.6 x10^3/uL (1.8-7.7) Lymphocytes # (Auto) 1.8 x10^3/uL (1.0-4.8) Monocytes # (Auto) 0.9 x10^3/uL (0.0-1.1) Eosinophils # (Auto) 0.3 x10^3/uL (0.0-0.7) Basophils # (Auto) 0.0 x10^3/uL (0.0-0.2) Sodium Level 146 mmol/L (136-145) Potassium Level 3.7 mmol/L (3.5-5.1) Chloride Level 106 mmol/L (98-107) Carbon Dioxide Level 26 mmol/L (21-32) Anion Gap 14 (6-14) Blood Urea Nitrogen 13 mg/dL (8-26) Creatinine 0.8 mg/dL (0.7-1.3) Estimated GFR (Cockcroft-Gault) 98.6 BUN/Creatinine Ratio 16 (6-20) Glucose Level 84 mg/dL (70-99) Calcium Level 8.9 mg/dL (8.5-10.1) Magnesium Level 2.3 mg/dL (1.8-2.4) Total Bilirubin 0.9 mg/dL (0.2-1.0) Aspartate Amino Transf (AST/SGOT) 30 U/L (15-37) Alanine Aminotransferase (ALT/SGPT) 65 U/L (16-63) Alkaline Phosphatase 95 U/L (46-116) Troponin I Quantitative < 0.017 ng/mL (0.000-0.055) < 0.017 ng/mL (0.000-0.055) < 0.017 ng/mL (0.000-0.055) GV-Tzx-O-Type Natriuretic Peptide 185 pg/mL (0-124) Total Protein 7.7 g/dL (6.4-8.2) Albumin 3.9 g/dL (3.4-5.0) Albumin/Globulin Ratio 1.0 (1.0-1.7) Lipase 102 U/L (73-393) Laboratory Tests Test 10/01/20 12:30 10/01/20 16:16 10/01/20 18:49 White Blood Count 7.7 x10^3/uL (4.0-11.0) Red Blood Count 5.12 x10^6/uL (4.30-5.70) Hemoglobin 15.4 g/dL (13.0-17.5) Hematocrit 45.1 % (39.0-53.0) Mean Corpuscular Volume 88 fL (79-100) Mean Corpuscular Hemoglobin 30 pg (25-35) Mean Corpuscular Hemoglobin Concent 34 g/dL (31-37) Red Cell Distribution Width 13.4 % (11.5-14.5) Platelet Count 240 x10^3/uL (140-400) Neutrophils (%) (Auto) 60 % (31-73) Lymphocytes (%) (Auto) 24 % (24-48) Monocytes (%) (Auto) 12 % (0-9) Eosinophils (%) (Auto) 4 % (0-3) Basophils (%) (Auto) 0 % (0-3) Neutrophils # (Auto) 4.6 x10^3/uL (1.8-7.7) Lymphocytes # (Auto) 1.8 x10^3/uL (1.0-4.8) Monocytes # (Auto) 0.9 x10^3/uL (0.0-1.1) Eosinophils # (Auto) 0.3 x10^3/uL (0.0-0.7) Basophils # (Auto) 0.0 x10^3/uL (0.0-0.2) Sodium Level 146 mmol/L (136-145) Potassium Level 3.7 mmol/L (3.5-5.1) Chloride Level 106 mmol/L (98-107) Carbon Dioxide Level 26 mmol/L (21-32) Anion Gap 14 (6-14) Blood Urea Nitrogen 13 mg/dL (8-26) Creatinine 0.8 mg/dL (0.7-1.3) Estimated GFR (Cockcroft-Gault) 98.6 BUN/Creatinine Ratio 16 (6-20) Glucose Level 84 mg/dL (70-99) Calcium Level 8.9 mg/dL (8.5-10.1) Magnesium Level 2.3 mg/dL (1.8-2.4) Total Bilirubin 0.9 mg/dL (0.2-1.0) Aspartate Amino Transf (AST/SGOT) 30 U/L (15-37) Alanine Aminotransferase (ALT/SGPT) 65 U/L (16-63) Alkaline Phosphatase 95 U/L (46-116) Troponin I Quantitative < 0.017 ng/mL (0.000-0.055) < 0.017 ng/mL (0.000-0.055) < 0.017 ng/mL (0.000-0.055) JR-Nrh-O-Type Natriuretic Peptide 185 pg/mL (0-124) Total Protein 7.7 g/dL (6.4-8.2) Albumin 3.9 g/dL (3.4-5.0) Albumin/Globulin Ratio 1.0 (1.0-1.7) Lipase 102 U/L (73-393) Medications Current Medications Iohexol (Omnipaque 350 Mg/ml) 100 ml 1X ONCE IV Last administered on 10/01/20at 13:58; Start 10/01/20 at 13:45; Stop 10/01/20 at 13:46; Status DC Info (CONTRAST GIVEN -- Rx MONITORING) 1 each PRN DAILY PRN MC SEE COMMENTS; Start 10/01/20 at 13:45; Stop 10/03/20 at 13:44 Metoprolol Tartrate (Lopressor Vial) 5 mg 1X ONCE IVP ; Start 10/01/20 at 16:00; Stop 10/01/20 at 16:01; Status DC Hydralazine HCl (Apresoline Inj) 10 mg PRN Q4HRS PRN IVP ELEVATED BP, SEE COMMENTS; Start 10/01/20 at 17:30 Pantoprazole Sodium (Protonix) 40 mg DAILYAC PO Last administered on 10/02/20at 08:53; Start 10/01/20 at 17:30 Sodium Chloride (Normal Saline Flush) 3 ml QSHIFT PRN IV AFTER MEDS AND BLOOD DRAWS; Start 10/01/20 at 17:30 Sodium Chloride 1,000 ml @ 100 mls/hr Q10H IV Last administered on 10/01/20at 18:36; Start 10/01/20 at 17:30 Ondansetron HCl (Zofran) 4 mg PRN Q4HRS PRN IV NAUSEA/VOMITING; Start 10/01/20 at 17:30 Acetaminophen (Tylenol) 650 mg PRN Q4HRS PRN PO TEMP OVER 100.4F OR MILD PAIN; Start 10/01/20 at 17:30 Al Hydroxide/Mg Hydroxide (Mylanta Plus Xs) 30 ml PRN DAILY PRN PO HEARTBURN / GAS; Start 10/01/20 at 17:30 Clonidine HCl (Catapres) 0.1 mg PRN Q6HRS PRN PO SBP>160 OR DBP>90; Start 10/01/20 at 17:30 Sodium Monofluorophosphate (Fleet Adult) 133 ml PRN DAILY PRN [place] CONSTIPATION; Start 10/01/20 at 17:30 Docusate Sodium (Colace) 100 mg PRN BID PRN PO HARD STOOLS; Start 10/01/20 at 17:30 Albuterol Sulfate (Ventolin Neb Soln) 2.5 mg PRN Q4HRS PRN NEB SHORTNESS OF BREATH; Start 10/01/20 at 17:30 Guaifenesin (Robitussin) 200 mg PRN Q4HRS PRN PO COUGH; Start 10/01/20 at 17:30 Lorazepam (Ativan) 0.5 mg PRN Q4HRS PRN PO ANXIETY / AGITATION; Start 10/01/20 at 17:30 Enoxaparin Sodium (Lovenox 40mg Syringe) 40 mg Q12HR SQ Last administered on at 08:54; Start 10/01/20 at 21:00 Nitroglycerin (Nitrostat) 0.4 mg PRN Q5MIN PRN SL CHEST PAIN; Start 10/01/20 at 17:30 Amlodipine Besylate (Norvasc) 5 mg DAILY PO Last administered on 10/02/20at 08:53; Start 10/01/20 at 17:45 Lisinopril (Prinivil) 2.5 mg BID PO Last administered on 10/02/20at 08:54; Start 10/01/20 at 17:45; Stop 10/02/20 at 09:23; Status DC Lisinopril (Prinivil) 20 mg DAILY PO ; Start 10/02/20 at 09:30 Aspirin (Ecotrin) 81 mg DAILYWBKFT PO ; Start 10/02/20 at 10:00 Active Scripts Active Reported Losartan Potassium 100 Mg Tablet 100 Mg PO DAILY Diclofenac Sodium 75 Mg Tablet.dr 1 Tab PO BID Pravastatin Sodium 40 Mg Tablet 1 Tab PO QHS Vitals/I & O Vital Sign - Last 24 Hours 10/01/20 10/01/20 10/01/20 10/01/20 12:18 12:24 12:46 13:16 Temp 97.9 97.9 Pulse 71 70 70 80 Resp 20 B/P (MAP) 193/99 (130) 193/99 (130) 183/101 (128) 171/93 (119) Pulse Ox 98 97 96 96 O2 Delivery Room Air Room Air Room Air Room Air 10/01/20 10/01/20 10/01/20 10/01/20 13:46 15:18 16:12 18:18 Pulse 82 76 77 76 Resp 18 B/P (MAP) 167/85 (112) 202/85 (124) 160/87 (111) 162/88 (112) Pulse Ox 95 96 99 94 O2 Delivery Room Air Room Air Room Air Room Air 10/01/20 10/01/20 10/01/20 10/01/20 19:38 20:14 21:26 23:11 Temp 98.2 98.2 98.2 98.2 Pulse 77 77 67 Resp 16 16 B/P (MAP) 175/105 (128) 175/105 127/66 (86) Pulse Ox 93 94 O2 Delivery Room Air Room Air BiPAP/CPAP 10/02/20 10/02/20 10/02/20 10/02/20 03:36 07:00 08:53 08:54 Temp 97.7 98.1 97.7 98.1 Pulse 64 72 72 72 Resp 18 20 B/P (MAP) 142/81 (101) 179/106 (130) 179/106 179/106 Pulse Ox 95 95 O2 Delivery BiPAP/CPAP Room Air Intake and Output 10/01/20 10/01/20 10/02/20 15:00 23:00 07:00 Intake Total 250 ml 100 ml Balance 250 ml 100 ml Justicifation of Admission Dx: Justifications for Admission: Justification of Admission Dx: Yes Comments: HYPERTENSIVE URGENCY MARY DOMINGUEZ MD Oct 02, 2020 09:44
[2020-10-02 10:38] LABS: CHOLESTEROL/HDL RATIO 6.7
[2020-10-02] MEDS: ASPIRIN ENTERIC COATED 81 MG TABLET.DR. PO SCH (11:27)
[2020-10-02] MEDS: ACETAMINOPHEN 325 MG TABLET. PO PRN (11:29)
[2020-10-02] MEDS ORDERED: PERFLUTREN PROTEIN-A MICROSPHR 0.22 MG/ML 3 ML VIAL. IV ONE ×2 (12:45→13:00)
--- NOTE | 2020-10-02 14:13 | NUR ---
SS following for discharge planning. SS reviewed pt chart and discussed with pt RN. Pt is from home with spouse and is currently on room air. Cardiology consulted. SS will continue to follow for discharge planning.
[2020-10-02] MEDS ORDERED: HYDROcodone/APAP 5/325MG 1 TAB TABLET PO PRN (15:45)
[2020-10-02] MEDS: hydrALAZINE 20 MG/ML VIAL. IVP PRN ×2 (15:52→19:30)
--- NOTE | 2020-10-02 16:35 | CARD ---
MR#: [id number] Date of Study: 10/02/2020 Ordering Physician: MARY DOMINGUEZ, Referring Physician: MARY DOMINGUEZ Tech: Sharon Hart [facility] APPROVED REPORT EXAM: Two-dimensional and M-mode echocardiogram with Doppler and color Doppler. Other Information Quality : Technically LimitedHR: 65bpm Rhythm : NSR INDICATION Chest Pain RISK FACTORS Hypertension Obesity Hyperlipidemia 2D DIMENSIONS RVDd4.2 (2.9-3.5cm)Left Atrium(2D)4.3 (1.6-4.0cm) IVSd1.6 (0.7-1.1cm)Aortic Root(2D)3.4 (2.0-3.7cm) LVDd5.5 (3.9-5.9cm)LVOT Diameter2.7 (1.8-2.4cm) PWd1.6 (0.7-1.1cm)LVDs3.3 (2.5-4.0cm) FS (%) 39.7 %SV102.2 ml LVEF(%)69.7 (>50%) Aortic Valve AoV Peak Umang.107.9cm/sAoV VTI27.8cm AO Peak GR.4.7mmHgLVOT Peak Umang.97.7cm/s AO Mean GR.3mmHgAVA (VMAX)4.99cm2 Mitral Valve MV E Msbkramr99.7cm/sMV DECEL [id number] MV A Cqkzxvso622.9cm/sE/A Ratio0.8 Pulmonary Valve PV Peak Rhnoemqc44.3cm/s LEFT VENTRICLE The left ventricle is normal size. There is moderate concentric left ventricular hypertrophy. The lef t ventricular systolic function is normal. Ejection fraction estimated at 55-60%. There is normal LV segmental wall motion. Transmitral Doppler flow pattern is Grade I-abnormal relaxation pattern. RIGHT VENTRICLE The right ventricle is mildly dilated. There is normal right ventricular wall thickness. The right ve ntricular systolic function is normal. ATRIA The left atrium size is normal. The right atrium size is normal. The interatrial septum is intact wit h no evidence for an atrial septal defect or patent foramen ovale as noted on 2-D or Doppler imaging. AORTIC VALVE The aortic valve is normal in structure and function. Doppler and Color Flow revealed no significant aortic regurgitation. There is no significant aortic valvular stenosis. MITRAL VALVE The mitral valve is normal in structure and function. There is no evidence of mitral valve prolapse. There is no mitral valve stenosis. Doppler and Color-flow revealed trace to mild mitral regurgitation . TRICUSPID VALVE The tricuspid valve is normal in structure and function. Doppler and Color Flow revealed no tricuspid valve regurgitation noted. There is no tricuspid valve stenosis. PULMONIC VALVE The pulmonary valve is normal in structure and function. Doppler and Color Flow revealed no pulmonic valvular regurgitation. GREAT VESSELS The aortic root is normal in size. The ascending aorta is normal in size. Due to poor image quality, the IVC could not be assessed. PERICARDIAL EFFUSION There is no evidence of significant pericardial effusion. Critical Notification Critical Value: No <Conclusion> Technically difficult study. Optison echo contrast used. The left ventricular systolic function is normal. Ejection fraction estimated at 55-60%. There is normal LV segmental wall motion. Transmitral Doppler flow pattern is Grade I-abnormal relaxation pattern. Trace to mild mitral regurgitation. There is no evidence of significant pericardial effusion. Signed by : Marcel Méndez, Electronically Approved : 10/02/2020 16:35:31
[2020-10-02] MEDS ORDERED: ATORVASTATIN CALCIUM 10 MG TABLET. PO SCH (21:00)
[2020-10-02] MEDS ORDERED: ZOLPIDEM 5 MG TABLET. PO PRN ×2 (21:30)
[2020-10-02] MEDS ORDERED: amLODIPine BESYLATE 5 MG TABLET PO ONE (22:45)
[2020-10-03 02:17] VITALS: BP 152/93
[2020-10-03] MEDS: ACETAMINOPHEN 325 MG TABLET. PO PRN ×2 (04:09→12:05)
[2020-10-03 07:00] VITALS: BP 155/79
[2020-10-03 08:26] LABS: CALCIUM 8.5 mg/dL (8.5-10.1); CREATININE 0.7 mg/dL (0.7-1.3); POTASSIUM 3.6 mmol/L (3.5-5.1)
[2020-10-03] MEDS: PANTOPRAZOLE 40 MG TABLET.DR. PO SCH (08:51)
[2020-10-03] MEDS: ASPIRIN ENTERIC COATED 81 MG TABLET.DR. PO SCH (08:51)
[2020-10-03] MEDS: amLODIPine BESYLATE 5 MG TABLET PO SCH (08:52)
[2020-10-03] MEDS: ENOXAPARIN 40 MG/0.4 ML SYRINGE. SQ SCH (08:53)
[2020-10-03] MEDS ORDERED: LOSARTAN POTASSIUM 50 MG TABLET. PO SCH (09:00)
--- NOTE | 2020-10-03 10:04 | PDOC ---
PROGRESS NOTES Date of Service: DATE: 10/03/20 TIME: 10:04 Chief Complaint Chief Complaint VTE Prophylaxis Ordered VTE Prophylaxis Devices: Yes VTE Pharmacological Prophylaxi: Yes Assessment/Plan Assessment/Plan Impression: Chest pain with typical and atypical features, risk factors age, sex. obesity, HTN, DAVONTE HYPERTENSIVE URGENCY, improved MORBID OBESITY, SEVERE DAVONTE GERD CTA CHEST NEG PE Hepatic steatosis HYPERLIPIDEMIA ADMITTED Cardiology consult serial troponin echo iv bp control UDS PO PROTONIX SL NTG 0.4 MG Q 1 HR PRN DVT PROPHYLAXIS LIPID LOWERING AGENT 4-16 Bp better CONTROL ECHO reviewed D/W RN PRN IV HYDRALAZINE BP SUPPORT weight loss needed , discussed d/c planning 34 min 4-15 BP SUBOPTIMAL CONTROL ECHO PENDING D/W RN PRN IV HYDRALAZINE BP SUPPORT Justifications for Admission Justifications for Admission Other Justification History of Present Illness History of Present Illness Identification/Chief Complaint Chief Complaint ANTERIOR CHEST PAIN X 2 WEEKS, NOW MORE FREQUENT, ASSOCIATED WITH EXERTION History of Present Illness History of Present Illness 60 year old male who presented to ER due to substernal chest pain BEGAN 2 WEEKS AGO, WORSE TODAY, SOME RADIATION TO LEFT ARM. Chest pain is sharp and stabbing in nature and lasted for a few seconds. The pain was worsened with exertion. denies any cough or fever. Patient has history hypertension, UPON arrival to ER his blood pressure was elevated. TOOK 4 ASPIRIN AT HOME denies any history of blood clot disorder. Patient has history of high cholesterol. HAS HX TOBACCO ABUSE Mother had heart disease CTA CHEST NEG FOR PE Past Medical History Past Medical History Past Medical History Past Medical History Past Medical History: Diabetes-Type II, High Cholesterol, Hypertension, Other Additional Past Medical Histor: obesity Past Surgical History: Other Additional Past Surgical Histo: multiple back, r rotator cuff Smoking Status: Former Smoker Alcohol Use: Occasionally Drug Use: None fhx obesity Cardiovascular: Hyperlipidemia Family History Family History: Heart Disease, Hypertension Social History Smoke: Quit ALCOHOL: none Drugs: None Current Medications Current Medications Current Medications Iohexol (Omnipaque 350 Mg/ml) 100 ml 1X ONCE IV Last administered on 10/01/20at 13:58; Start 10/01/20 at 13:45; Stop 10/01/20 at 13:46; Status DC Info (CONTRAST GIVEN -- Rx MONITORING) 1 each PRN DAILY PRN MC SEE COMMENTS; Start 10/01/20 at 13:45; Stop 10/03/20 at 13:44 Active Scripts Active Keflex (Cephalexin) 500 Mg Capsule 1 Cap PO BID Allergies Allergies: Coded Allergies: No Known Drug Allergies (Unverified , 02/01/16) ROS Review of System 14 pt ros otheriise neg General: No: Chills, Night Sweats, Fatigue, Malaise, Appetite, Other PSYCHOLOGICAL ROS: No: Anxiety, Behavioral Disorder, Concentration difficultie, Decreased libido, Depression, Disorientation, Hallucinations, Hostility, Irritablity, Memory difficulties, Mood Swings, Obsessive thoughts, Physical abuse, Sexual abuse, Sleep disturbances, Suicidal ideation, Other Eyes: No Blurry vision, No Decreased vision, No Double vision, No Dry eyes, No Excessive tearing, No Eye Pain, No Itchy Eyes, No Loss of vision, No Photophob ia, No Scotomata, No Uses contacts, No Uses glasses, No Other HEENT: No: Heacaches, Visual Changes, Hearing change, Nasal congestion, Nasal discharge, Oral lesions, Sinus pain, Sore Throat, Epistaxis, Sneezing, Snoring, Tinnitus, Vertigo, Vocal changes, Other ALLERGY AND IMMUNOLOGY: No: Hives, Insect Bite Sensitivity, Itchy/Watery Eyes, Nasal Congestion, Post Nasal Drip, Seasonal Allergies, Other Hematological and Lymphatic: No: Bleeding Problems, Blood Clots, Blood Transfusions, Brusing, Night Sweats, Pallor, Swollen Lymph Nodes, Other ENDOCRINE: No: Breast Changes, Galactorrhea, Hair Pattern Changes, Hot Flashes, Malaise/lethargy, Mood Swings, Palpitations, Polydipsia/polyuria, Skin Changes, Temperature Intolerance, Unexpected Weight Changes, Other Breast: No New/Changing Breast Lumps, No Nipple changes, No Nipple discharge, No Other Respiratory: No: Cough, Hemoptysis, Orthopnea, Pleuritic Pain, Shortness of breath, SOB with excertion, Sputum Changes, Stridor, Tachypnea, Wheezing, Other Cardiovascular: yes Chest Pain; No Palpitations, No Orthopnea, No Paroxysmal Noc. Dyspnea, No Edema, No Lt Headedness, No Other Gastrointestinal: No Nausea, No Vomiting, No Abdominal Pain, No Diarrhea, No Constipation, No Melena, No Hematochezia, No Other Genitourinary: No Dysuria, No Frequency, No Incontinence, No Hematuria, No Retention, No Discharge, No Urgency, No Pain, No Flank Pain, No Other, No , No , No , No , No , No , No Musculoskeletal: No Gait Disturbance, No Joint Pain, No Joint Stiffness, No Joint Swelling, No Muscle Pain, No Muscular Weakness, No Pain In:, No Swelling In:, No Other Neurological: No Behavorial Changes, No Bowel/Bladder ControlChng, No Confusion, No Dizziness, No Gait Disturbance, No Headaches, No Impaired Coord/balance, No Memory Loss, No Numbness/Tingling, No Seizures, No Speech Problems, No Tremors, No Visual Changes, No Weakness, No Other Skin: No Dry Skin, No Eczema, No Hair Changes, No Lumps, No Mole Changes, No Mottling, No Nail Changes, No Pruritus, No Rash, No Skin Lesion Changes, No Other, No Acne Vitals Vitals Vital Signs Date Time Temp Pulse Resp B/P (MAP) Pulse Ox O2 Delivery O2 Flow Rate FiO2 10/03/20 08:52 75 155/79 10/03/20 08:00 Room Air 10/03/20 07:00 98.0 16 98 98.0 Physical Exam Physical Exam Physical Exam General: Alert, Oriented X3, Cooperative, No acute distress HEENT: Atraumatic, PERRLA, EOMI, Mucous membr. moist/pink Lungs: Clear to auscultation Heart: S1S2, RRR, no thrills, no gallops, no murmurs Cardiovascular: S1, S2 Breasts: Not examined Abdomen: Normal bowel sounds, Soft, Other (VERY OBESE) Rectal Exam: not examined, deferred Extremities: No cyanosis, No tenderness/swelling Skin: No significant lesion Neuro: Normal speech, Strength at 5/5 X4 ext, Normal tone, Sensation intact, Cranial nerves 3-12 NL Psych/Mental Status: Mental status NL, Mood NL General: Alert, Oriented X3, Cooperative, No acute distress Heart: Regular rate, Normal S1, Normal S2 Lungs: Clear Abdomen: Soft, No tenderness, Other (obese ) Extremities: No cyanosis, No edema, Normal pulses Skin: No significant lesion Labs LABS Laboratory Tests Test 10/03/20 06:10 Sodium Level 142 mmol/L (136-145) Potassium Level 3.6 mmol/L (3.5-5.1) Chloride Level 104 mmol/L (98-107) Carbon Dioxide Level 26 mmol/L (21-32) Anion Gap 12 (6-14) Blood Urea Nitrogen 12 mg/dL (8-26) Creatinine 0.7 mg/dL (0.7-1.3) Estimated GFR (Cockcroft-Gault) 115.0 Glucose Level 107 mg/dL (70-99) Calcium Level 8.5 mg/dL (8.5-10.1) Assessment and Plan Assessmemt and Plan Problems Medical Problems: (1) Chest pain Status: Acute Comment Review of Relevant I have reviewed the following items florina (where applicable) has been applied. Labs Laboratory Tests Test 10/01/20 12:30 10/01/20 16:16 10/01/20 18:49 10/03/20 06:10 White Blood Count 7.7 x10^3/uL (4.0-11.0) Red Blood Count 5.12 x10^6/uL (4.30-5.70) Hemoglobin 15.4 g/dL (13.0-17.5) Hematocrit 45.1 % (39.0-53.0) Mean Corpuscular Volume 88 fL (79-100) Mean Corpuscular Hemoglobin 30 pg (25-35) Mean Corpuscular Hemoglobin Concent 34 g/dL (31-37) Red Cell Distribution Width 13.4 % (11.5-14.5) Platelet Count 240 x10^3/uL (140-400) Neutrophils (%) (Auto) 60 % (31-73) Lymphocytes (%) (Auto) 24 % (24-48) Monocytes (%) (Auto) 12 % (0-9) Eosinophils (%) (Auto) 4 % (0-3) Basophils (%) (Auto) 0 % (0-3) Neutrophils # (Auto) 4.6 x10^3/uL (1.8-7.7) Lymphocytes # (Auto) 1.8 x10^3/uL (1.0-4.8) Monocytes # (Auto) 0.9 x10^3/uL (0.0-1.1) Eosinophils # (Auto) 0.3 x10^3/uL (0.0-0.7) Basophils # (Auto) 0.0 x10^3/uL (0.0-0.2) Sodium Level 146 mmol/L (136-145) 142 mmol/L (136-145) Potassium Level 3.7 mmol/L (3.5-5.1) 3.6 mmol/L (3.5-5.1) Chloride Level 106 mmol/L (98-107) 104 mmol/L (98-107) Carbon Dioxide Level 26 mmol/L (21-32) 26 mmol/L (21-32) Anion Gap 14 (6-14) 12 (6-14) Blood Urea Nitrogen 13 mg/dL (8-26) 12 mg/dL (8-26) Creatinine 0.8 mg/dL (0.7-1.3) 0.7 mg/dL (0.7-1.3) Estimated GFR (Cockcroft-Gault) 98.6 115.0 BUN/Creatinine Ratio 16 (6-20) Glucose Level 84 mg/dL (70-99) 107 mg/dL (70-99) Calcium Level 8.9 mg/dL (8.5-10.1) 8.5 mg/dL (8.5-10.1) Magnesium Level 2.3 mg/dL (1.8-2.4) Total Bilirubin 0.9 mg/dL (0.2-1.0) Aspartate Amino Transf (AST/SGOT) 30 U/L (15-37) Alanine Aminotransferase (ALT/SGPT) 65 U/L (16-63) Alkaline Phosphatase 95 U/L (46-116) Troponin I Quantitative < 0.017 ng/mL (0.000-0.055) < 0.017 ng/mL (0.000-0.055) < 0.017 ng/mL (0.000-0.055) KD-Upa-B-Type Natriuretic Peptide 185 pg/mL (0-124) Total Protein 7.7 g/dL (6.4-8.2) Albumin 3.9 g/dL (3.4-5.0) Albumin/Globulin Ratio 1.0 (1.0-1.7) Triglycerides Level 303 mg/dL (0-150) Cholesterol Level 194 mg/dL (0-200) LDL Cholesterol, Calculated 104 mg/dL (0-100) VLDL Cholesterol, Calculated 61 mg/dL (0-40) Non-HDL Cholesterol Calculated 165 mg/dL (0-129) HDL Cholesterol 29 mg/dL (40-60) Cholesterol/HDL Ratio 6.7 Lipase 102 U/L (73-393) Thyroid Stimulating Hormone (TSH) 2.765 uIU/mL (0.358-3.74) Laboratory Tests Test 10/03/20 06:10 Sodium Level 142 mmol/L (136-145) Potassium Level 3.6 mmol/L (3.5-5.1) Chloride Level 104 mmol/L (98-107) Carbon Dioxide Level 26 mmol/L (21-32) Anion Gap 12 (6-14) Blood Urea Nitrogen 12 mg/dL (8-26) Creatinine 0.7 mg/dL (0.7-1.3) Estimated GFR (Cockcroft-Gault) 115.0 Glucose Level 107 mg/dL (70-99) Calcium Level 8.5 mg/dL (8.5-10.1) Medications Current Medications Iohexol (Omnipaque 350 Mg/ml) 100 ml 1X ONCE IV Last administered on 10/01/20at 13:58; Start 10/01/20 at 13:45; Stop 10/01/20 at 13:46; Status DC Info (CONTRAST GIVEN -- Rx MONITORING) 1 each PRN DAILY PRN MC SEE COMMENTS; Start 10/01/20 at 13:45; Stop 10/03/20 at 13:44 Metoprolol Tartrate (Lopressor Vial) 5 mg 1X ONCE IVP ; Start 10/01/20 at 16:00; Stop 10/01/20 at 16:01; Status DC Hydralazine HCl (Apresoline Inj) 10 mg PRN Q4HRS PRN IVP ELEVATED BP, SEE COMMENTS Last administered on 10/02/20at 19:30; Start 10/01/20 at 17:30 Pantoprazole Sodium (Protonix) 40 mg DAILYAC PO Last administered on 10/03/20at 08:51; Start 10/01/20 at 17:30 Sodium Chloride (Normal Saline Flush) 3 ml QSHIFT PRN IV AFTER MEDS AND BLOOD DRAWS; Start 10/01/20 at 17:30 Sodium Chloride 1,000 ml @ 100 mls/hr Q10H IV Last administered on 10/01/20at 18:36; Start 10/01/20 at 17:30; Stop 10/02/20 at 13:34; Status DC Ondansetron HCl (Zofran) 4 mg PRN Q4HRS PRN IV NAUSEA/VOMITING Last administered on 10/02/20at 19:28; Start 10/01/20 at 17:30 Acetaminophen (Tylenol) 650 mg PRN Q4HRS PRN PO TEMP OVER 100.4F OR MILD PAIN Last administered on 10/03/20at 04:09; Start 10/01/20 at 17:30 Al Hydroxide/Mg Hydroxide (Mylanta Plus Xs) 30 ml PRN DAILY PRN PO HEARTBURN / GAS; Start 10/01/20 at 17:30 Clonidine HCl (Catapres) 0.1 mg PRN Q6HRS PRN PO SBP>160 OR DBP>90 Last administered on 10/02/20at 21:37; Start 10/01/20 at 17:30 Sodium Monofluorophosphate (Fleet Adult) 133 ml PRN DAILY PRN [place] CONSTIPATION; Start 10/01/20 at 17:30 Docusate Sodium (Colace) 100 mg PRN BID PRN PO HARD STOOLS; Start 10/01/20 at 17:30 Albuterol Sulfate (Ventolin Neb Soln) 2.5 mg PRN Q4HRS PRN NEB SHORTNESS OF BREATH; Start 10/01/20 at 17:30 Guaifenesin (Robitussin) 200 mg PRN Q4HRS PRN PO COUGH; Start 10/01/20 at 17:30 Lorazepam (Ativan) 0.5 mg PRN Q4HRS PRN PO ANXIETY / AGITATION Last administered on 10/02/20at 21:36; Start 10/01/20 at 17:30 Enoxaparin Sodium (Lovenox 40mg Syringe) 40 mg Q12HR SQ Last administered on 10/03/20at 08:53; Start 10/01/20 at 21:00 Nitroglycerin (Nitrostat) 0.4 mg PRN Q5MIN PRN SL CHEST PAIN; Start 10/01/20 at 17:30 Amlodipine Besylate (Norvasc) 5 mg DAILY PO Last administered on 10/03/20at 08:52; Start 10/01/20 at 17:45 Lisinopril (Prinivil) 2.5 mg BID PO Last administered on 10/02/20at 08:54; Start 10/01/20 at 17:45; Stop 10/02/20 at 09:23; Status DC Lisinopril (Prinivil) 20 mg DAILY PO Last administered on 10/02/20at 11:30; Start 10/02/20 at 09:30; Stop 10/02/20 at 13:33; Status DC Aspirin (Ecotrin) 81 mg DAILYWBKFT PO Last administered on 10/03/20at 08:51; Start 10/02/20 at 10:00 Perflutren Protein Type A Microsphe (Optison) 0.66 mg STK-MED ONCE IV ; Start 10/02/20 at 12:45; Stop 10/02/20 at 12:45; Status DC Perflutren Protein Type A Microsphe (Optison) 0.66 mg 1X ONCE IV Last administered on 10/02/20at 12:54; Start 10/02/20 at 13:00; Stop 10/02/20 at 13:01; Status DC Losartan Potassium (Cozaar) 100 mg DAILY PO Last administered on 10/03/20at 08:52; Start 10/03/20 at 09:00 Atorvastatin Calcium (Lipitor) 10 mg QHS PO Last administered on 10/02/20at 20:54; Start 10/02/20 at 21:00 Acetaminophen/ Hydrocodone Bitart (Lortab 5/325) 1 tab PRN Q4HRS PRN PO MODERATE - SEVERE PAIN Last administered on 10/02/20at 16:03; Start 10/02/20 at 15:45 Zolpidem Tartrate (Ambien) 5 mg PRN QHS PRN PO INSOMNIA; Start 10/02/20 at 21:30; Status Cancel Zolpidem Tartrate (Ambien) 5 mg PRN QHS PRN PO INSOMNIA; Start 10/02/20 at 21:30 Amlodipine Besylate (Norvasc) 5 mg 1X ONCE PO ; Start 10/02/20 at 22:45; Stop 10/02/20 at 22:46; Status DC Active Scripts Active Reported Losartan Potassium 100 Mg Tablet 100 Mg PO DAILY Diclofenac Sodium 75 Mg Tablet. 1 Tab PO BID Pravastatin Sodium 40 Mg Tablet 1 Tab PO QHS Vitals/I & O Vital Sign - Last 24 Hours 10/02/20 10/02/20 10/02/20 10/02/20 11:00 11:30 15:00 15:52 Temp 98.1 97.9 98.1 97.9 Pulse 67 75 77 77 Resp 20 20 B/P (MAP) 158/101 (120) 158/101 193/86 (121) 193/86 Pulse Ox 96 96 O2 Delivery Room Air Room Air 10/02/20 10/02/20 10/02/20 10/02/20 16:03 16:39 17:48 19:30 Pulse 72 B/P (MAP) 174/89 (117) 168/85 (112) 180/108 O2 Delivery Room Air 10/02/20 10/02/20 10/02/20 10/02/20 19:35 19:38 21:37 23:12 Temp 97.9 98.1 97.9 98.1 Pulse 72 86 80 Resp 18 18 B/P (MAP) 180/108 (132) 193/94 144/81 (102) Pulse Ox 97 100 O2 Delivery Room Air Room Air BiPAP/CPAP 10/03/20 10/03/20 10/03/20 10/03/20 02:17 07:00 08:00 08:52 Temp 97.9 98.0 97.9 98.0 Pulse 85 75 75 Resp 16 16 B/P (MAP) 152/93 (112) 155/79 (104) 155/79 Pulse Ox 97 98 O2 Delivery Room Air Room Air Room Air 10/03/20 08:52 Pulse 75 B/P (MAP) 155/79 Intake and Output 10/02/20 10/02/20 10/03/20 15:00 23:00 07:00 Intake Total 980 ml 480 ml 100 ml Balance 980 ml 480 ml 100 ml Justicifation of Admission Dx: Justifications for Admission: Justification of Admission Dx: Yes MARY DOMINGUEZ MD Oct 03, 2020 10:04
[2020-10-03 10:23] VITALS: BP 170/94
--- NOTE | 2020-10-03 10:50 | PDOC3 ---
Discharge Summary Date of Admission: Oct 01, 2020 Date of Discharge: Oct 03, 2020 Follow-Up: 3-5 days Admitting Diagnosis comment: hpi History of Present Illness 60 year old male who presented to ER due to substernal chest pain BEGAN 2 WEEKS AGO, WORSE TODAY, SOME RADIATION TO LEFT ARM. Chest pain is sharp and stabbing in nature and lasted for a few seconds. The pain was worsened with exertion. denies any cough or fever. Patient has history hypertension, UPON arrival to ER his blood pressure was elevated. TOOK 4 ASPIRIN AT HOME denies any history of blood clot disorder. Patient has history of high chol esterol. HAS HX TOBACCO ABUSE Mother had heart disease CTA CHEST NEG FOR PE consults cardiology procedures echo, cvc monitor complications none d/c condition good d/c meds see mar see pcp next week, cardiology next week discharge dx Assessment/Plan Impression: Chest pain with typical and atypical features, risk factors age, sex. obesity, HTN, DAVONTE HYPERTENSIVE URGENCY, improved MORBID OBESITY, SEVERE DAVONTE GERD CTA CHEST NEG PE Hepatic steatosis HYPERLIPIDEMIA ADMITTED Cardiology consult serial troponin echo iv bp control UDS PO PROTONIX SL NTG 0.4 MG Q 1 HR PRN DVT PROPHYLAXIS LIPID LOWERING AGENT 4-16 Bp better CONTROL ECHO reviewed D/W RN PRN IV HYDRALAZINE BP SUPPORT weight loss needed , discussed d/c planning 34 min 4-15 BP SUBOPTIMAL CONTROL ECHO PENDING D/W RN PRN IV HYDRALAZINE BP SUPPORT Justifications for Admission Justifications for Admission Other Justification History of Present Illness History of Present Illness Identification/Chief Complaint Chief Complaint ANTERIOR CHEST PAIN X 2 WEEKS, NOW MORE FREQUENT, ASSOCIATED WITH EXERTION History of Present Illness History of Present Illness 60 year old male who presented to ER due to substernal chest pain BEGAN 2 WEEKS AGO, WORSE TODAY, SOME RADIATION TO LEFT ARM. Chest pain is sharp and stabbing in nature and lasted for a few seconds. The pain was worsened with exertion. denies any cough or fever. Patient has history hypertension, UPON arrival to ER his blood pressure was elevated. TOOK 4 ASPIRIN AT HOME denies any history of blood clot disorder. Patient has history of high cholesterol. HAS HX TOBACCO ABUSE Mother had heart disease CTA CHEST NEG FOR PE Past Medical History Past Medical History Past Medical History Past Medical History Past Medical History: Diabetes-Type II, High Cholesterol, Hypertension, Other Additional Past Medical Histor: obesity Past Surgical History: Other Additional Past Surgical Histo: multiple back, r rotator cuff Smoking Status: Former Smoker Alcohol Use: Occasionally Drug Use: None fhx obesity Cardiovascular: Hyperlipidemia Family History Family History: Heart Disease, Hypertension Social History Smoke: Quit ALCOHOL: none Drugs: None Current Medications Current Medications Current Medications Iohexol (Omnipaque 350 Mg/ml) 100 ml 1X ONCE IV Last administered on 10/01/20at 13:58; Start 10/01/20 at 13:45; Stop 10/01/20 at 13:46; Status DC Info (CONTRAST GIVEN -- Rx MONITORING) 1 each PRN DAILY PRN MC SEE COMMENTS; Start 10/01/20 at 13:45; Stop 10/03/20 at 13:44 Active Scripts Active Keflex (Cephalexin) 500 Mg Capsule 1 Cap PO BID Allergies Allergies: Coded Allergies: No Known Drug Allergies (Unverified , 02/01/16) ROS Review of System 14 pt ros otheriise neg General: No: Chills, Night Sweats, Fatigue, Malaise, Appetite, Other PSYCHOLOGICAL ROS: No: Anxiety, Behavioral Disorder, Concentration difficultie, Decreased libido, Depression, Disorientation, Hallucinations, Hostility, Irritablity, Memory difficulties, Mood Swings, Obsessive thoughts, Physical abuse, Sexual abuse, Sleep disturbances, Suicidal ideation, Other Eyes: No Blurry vision, No Decreased vision, No Double vision, No Dry eyes, No Excessive tearing, No Eye Pain, No Itchy Eyes, No Loss of vision, No Photophobia, No Scotomata, No Uses contacts, No Uses glasses, No Other HEENT: No: Heacaches, Visual Changes, Hearing change, Nasal congestion, Nasal discharge, Oral lesions, Sinus pain, Sore Throat, Epistaxis, Sneezing, Snoring, Tinnitus, Vertigo, Vocal changes, Other ALLERGY AND IMMUNOLOGY: No: Hives, Insect Bite Sensitivity, Itchy/Watery Eyes, Nasal Congestion, Post Nasal Drip, Seasonal Allergies, Other Hematological and Lymphatic: No: Bleeding Problems, Blood Clots, Blood Transfusions, Brusing, Night Sweats, Pallor, Swollen Lymph Nodes, Other ENDOCRINE: No: Breast Changes, Galactorrhea, Hair Pattern Changes, Hot Flashes, Malaise/lethargy, Mood Swings, Palpitations, Polydipsia/polyuria, Skin Changes, Temperature Intolerance, Unexpected Weight Changes, Other Breast: No New/Changing Breast Lumps, No Nipple changes, No Nipple discharge, No Other Respiratory: No: Cough, Hemoptysis, Orthopnea, Pleuritic Pain, Shortness of breath, SOB with excertion, Sputum Changes, Stridor, Tachypnea, Wheezing, Other Cardiovascular: yes Chest Pain; No Palpitations, No Orthopnea, No Paroxysmal Noc. Dyspnea, No Edema, No Lt Headedness, No Other Gastrointestinal: No Nausea, No Vomiting, No Abdominal Pain, No Diarrhea, No Constipation, No Melena, No Hematochezia, No Other Genitourinary: No Dysuria, No Frequency, No Incontinence, No Hematuria, No Retention, No Discharge, No Urgency, No Pain, No Flank Pain, No Other, No , No , No , No , No , No , No Musculoskeletal: No Gait Disturbance, No Joint Pain, No Joint Stiffness, No Joint Swelling, No Muscle Pain, No Muscular Weakness, No Pain In:, No Swelling In:, No Other Neurological: No Behavorial Changes, No Bowel/Bladder ControlChng, No Confusion, No Dizziness, No Gait Disturbance, No Headaches, No Impaired Coord/balance, No Memory Loss, No Numbness/Tingling, No Seizures, No Speech Problems, No Tremors, No Visual Changes, No Weakness, No Other Skin: No Dry Skin, No Eczema, No Hair Changes, No Lumps, No Mole Changes, No Mottling, No Nail Changes, No Pruritus, No Rash, No Skin Lesion Changes, No Other, No Acne Vitals Vitals Vital Signs Date Time Temp Pulse Resp B/P (MAP) Pulse Ox O2 Delivery O2 Flow Rate FiO2 10/03/20 08:52 75 155/79 10/03/20 08:00 Room Air 10/03/20 07:00 98.0 16 98 98.0 Physical Exam Physical Exam Physical Exam General: Alert, Oriented X3, Cooperative, No acute distress HEENT: Atraumatic, PERRLA, EOMI, Mucous membr. moist/pink Lungs: Clear to auscultation Heart: S1S2, RRR, no thrills, no gallops, no murmurs Cardiovascular: S1, S2 Breasts: Not examined Abdomen: Normal bowel sounds, Soft, Other (VERY OBESE) Rectal Exam: not examined, deferred Extremities: No cyanosis, No tenderness/swelling Skin: No significant lesion Neuro: Normal speech, Strength at 5/5 X4 ext, Normal tone, Sensation intact, Cranial nerves 3-12 NL Psych/Mental Status: Mental status NL, Mood NL General: Alert, Oriented X3, Cooperative, No acute distress Heart: Regular rate, Normal S1, Normal S2 Lungs: Clear Abdomen: Soft, No tenderness, Other (obese ) Extremities: No cyanosis, No edema, Normal pulses Skin: No significant lesion FINAL DIAGNOSIS Problems Medical Problems: (1) Chest pain Status: Acute Brief Hospital Course Mr. Ramon is a 60 old [sex] who presented with [uncontrolled htn, chest pain ] CONDITION AT DISCHARGE: Improved Discharge Medications Current Medications Iohexol (Omnipaque 350 Mg/ml) 100 ml 1X ONCE IV Last administered on 10/01/20at 13:58; Start 10/01/20 at 13:45; Stop 10/01/20 at 13:46; Status DC Info (CONTRAST GIVEN -- Rx MONITORING) 1 each PRN DAILY PRN MC SEE COMMENTS; Start 10/01/20 at 13:45; Stop 10/03/20 at 13:44 Metoprolol Tartrate (Lopressor Vial) 5 mg 1X ONCE IVP ; Start 10/01/20 at 16:00; Stop 10/01/20 at 16:01; Status DC Hydralazine HCl (Apresoline Inj) 10 mg PRN Q4HRS PRN IVP ELEVATED BP, SEE COMMENTS Last administered on 10/02/20at 19:30; Start 10/01/20 at 17:30 Pantoprazole Sodium (Protonix) 40 mg DAILYAC PO Last administered on 10/03/20at 08:51; Start 10/01/20 at 17:30 Sodium Chloride (Normal Saline Flush) 3 ml QSHIFT PRN IV AFTER MEDS AND BLOOD DRAWS; Start 10/01/20 at 17:30 Sodium Chloride 1,000 ml @ 100 mls/hr Q10H IV Last administered on 10/01/20at 1 8:36; Start 10/01/20 at 17:30; Stop 10/02/20 at 13:34; Status DC Ondansetron HCl (Zofran) 4 mg PRN Q4HRS PRN IV NAUSEA/VOMITING Last administered on 10/02/20at 19:28; Start 10/01/20 at 17:30 Acetaminophen (Tylenol) 650 mg PRN Q4HRS PRN PO TEMP OVER 100.4F OR MILD PAIN Last administered on 10/03/20at 04:09; Start 10/01/20 at 17:30 Al Hydroxide/Mg Hydroxide (Mylanta Plus Xs) 30 ml PRN DAILY PRN PO HEARTBURN / GAS; Start 10/01/20 at 17:30 Clonidine HCl (Catapres) 0.1 mg PRN Q6HRS PRN PO SBP>160 OR DBP>90 Last administered on 10/02/20at 21:37; Start 10/01/20 at 17:30 Sodium Monofluorophosphate (Fleet Adult) 133 ml PRN DAILY PRN SC CONSTIPATION; Start 10/01/20 at 17:30 Docusate Sodium (Colace) 100 mg PRN BID PRN PO HARD STOOLS; Start 10/01/20 at 17:30 Albuterol Sulfate (Ventolin Neb Soln) 2.5 mg PRN Q4HRS PRN NEB SHORTNESS OF BREATH; Start 10/01/20 at 17:30 Guaifenesin (Robitussin) 200 mg PRN Q4HRS PRN PO COUGH; Start 10/01/20 at 17:30 Lorazepam (Ativan) 0.5 mg PRN Q4HRS PRN PO ANXIETY / AGITATION Last admi nistered on 10/02/20at 21:36; Start 10/01/20 at 17:30 Enoxaparin Sodium (Lovenox 40mg Syringe) 40 mg Q12HR SQ Last administered on 10/03/20at 08:53; Start 10/01/20 at 21:00 Nitroglycerin (Nitrostat) 0.4 mg PRN Q5MIN PRN SL CHEST PAIN; Start 10/01/20 at 17:30 Amlodipine Besylate (Norvasc) 5 mg DAILY PO Last administered on 10/03/20at 08:52; Start 10/01/20 at 17:45 Lisinopril (Prinivil) 2.5 mg BID PO Last administered on 10/02/20at 08:54; Start 10/01/20 at 17:45; Stop 10/02/20 at 09:23; Status DC Lisinopril (Prinivil) 20 mg DAILY PO Last administered on 10/02/20at 11:30; Start 10/02/20 at 09:30; Stop 10/02/20 at 13:33; Status DC Aspirin (Ecotrin) 81 mg DAILYWBKFT PO Last administered on 10/03/20at 08:51; Start 10/02/20 at 10:00 Perflutren Protein Type A Microsphe (Optison) 0.66 mg STK-MED ONCE IV ; Start 10/02/20 at 12:45; Stop 10/02/20 at 12:45; Status DC Perflutren Protein Type A Microsphe (Optison) 0.66 mg 1X ONCE IV Last administered on 10/02/20at 12:54; Start 10/02/20 at 13:00; Stop 10/02/20 at 13:01; Status DC Losartan Potassium (Cozaar) 100 mg DAILY PO Last administered on 10/03/20at 08:52; Start 10/03/20 at 09:00 Atorvastatin Calcium (Lipitor) 10 mg QHS PO Last administered on 10/02/20at 20:54; Start 10/02/20 at 21:00 Acetaminophen/ Hydrocodone Bitart (Lortab 5/325) 1 tab PRN Q4HRS PRN PO MODERATE - SEVERE PAIN Last administered on 10/02/20at 16:03; Start 10/02/20 at 15:45 Zolpidem Tartrate (Ambien) 5 mg PRN QHS PRN PO INSOMNIA; Start 10/02/20 at 21:30; Status Cancel Zolpidem Tartrate (Ambien) 5 mg PRN QHS PRN PO INSOMNIA; Start 10/02/20 at 21:30 Amlodipine Besylate (Norvasc) 5 mg 1X ONCE PO ; Start 10/02/20 at 22:45; Stop 10/02/20 at 22:46; Status DC Active Scripts Active Reported Losartan Potassium 100 Mg Tablet 100 Mg PO DAILY Diclofenac Sodium 75 Mg Tablet.dr 1 Tab PO BID Pravastatin Sodium 40 Mg Tablet 1 Tab PO QHS Vital Signs Vital Signs Date Time Temp Pulse Resp B/P (MAP) Pulse Ox O2 Delivery O2 Flow Rate FiO2 10/03/20 10:23 97.8 74 18 170/94 (119) 97 BiPAP/CPAP 97.8 Labs Laboratory Tests Test 10/01/20 12:30 10/01/20 16:16 10/01/20 18:49 10/03/20 06:10 White Blood Count 7.7 x10^3/uL (4.0-11.0) Red Blood Count 5.12 x10^6/uL (4.30-5.70) Hemoglobin 15.4 g/dL (13.0-17.5) Hematocrit 45.1 % (39.0-53.0) Mean Corpuscular Volume 88 fL (79-100) Mean Corpuscular Hemoglobin 30 pg (25-35) Mean Corpuscular Hemoglobin Concent 34 g/dL (31-37) Red Cell Distribution Width 13.4 % (11.5-14.5) Platelet Count 240 x10^3/uL (140-400) Neutrophils (%) (Auto) 60 % (31-73) Lymphocytes (%) (Auto) 24 % (24-48) Monocytes (%) (Auto) 12 % (0-9) Eosinophils (%) (Auto) 4 % (0-3) Basophils (%) (Auto) 0 % (0-3) Neutrophils # (Auto) 4.6 x10^3/uL (1.8-7.7) Lymphocytes # (Auto) 1.8 x10^3/uL (1.0-4.8) Monocytes # (Auto) 0.9 x10^3/uL (0.0-1.1) Eosinophils # (Auto) 0.3 x10^3/uL (0.0-0.7) Basophils # (Auto) 0.0 x10^3/uL (0.0-0.2) Sodium Level 146 mmol/L (136-145) 142 mmol/L (136-145) Potassium Level 3.7 mmol/L (3.5-5.1) 3.6 mmol/L (3.5-5.1) Chloride Level 106 mmol/L (98-107) 104 mmol/L (98-107) Carbon Dioxide Level 26 mmol/L (21-32) 26 mmol/L (21-32) Anion Gap 14 (6-14) 12 (6-14) Blood Urea Nitrogen 13 mg/dL (8-26) 12 mg/dL (8-26) Creatinine 0.8 mg/dL (0.7-1.3) 0.7 mg/dL (0.7-1.3) Estimated GFR (Cockcroft-Gault) 98.6 115.0 BUN/Creatinine Ratio 16 (6-20) Glucose Level 84 mg/dL (70-99) 107 mg/dL (70-99) Calcium Level 8.9 mg/dL (8.5-10.1) 8.5 mg/dL (8.5-10.1) Magnesium Level 2.3 mg/dL (1.8-2.4) Total Bilirubin 0.9 mg/dL (0.2-1.0) Aspartate Amino Transf (AST/SGOT) 30 U/L (15-37) Alanine Aminotransferase (ALT/SGPT) 65 U/L (16-63) Alkaline Phosphatase 95 U/L (46-116) Troponin I Quantitative < 0.017 ng/mL (0.000-0.055) < 0.017 ng/mL (0.000-0.055) < 0.017 ng/mL (0.000-0.055) FO-Dlu-Y-Type Natriuretic Peptide 185 pg/mL (0-124) Total Protein 7.7 g/dL (6.4-8.2) Albumin 3.9 g/dL (3.4-5.0) Albumin/Globulin Ratio 1.0 (1.0-1.7) Triglycerides Level 303 mg/dL (0-150) Cholesterol Level 194 mg/dL (0-200) LDL Cholesterol, Calculated 104 mg/dL (0-100) VLDL Cholesterol, Calculated 61 mg/dL (0-40) Non-HDL Cholesterol Calculated 165 mg/dL (0-129) HDL Cholesterol 29 mg/dL (40-60) Cholesterol/HDL Ratio 6.7 Lipase 102 U/L (73-393) Thyroid Stimulating Hormone (TSH) 2.765 uIU/mL (0.358-3.74) Laboratory Tests Test 10/03/20 06:10 Sodium Level 142 mmol/L (136-145) Potassium Level 3.6 mmol/L (3.5-5.1) Chloride Level 104 mmol/L (98-107) Carbon Dioxide Level 26 mmol/L (21-32) Anion Gap 12 (6-14) Blood Urea Nitrogen 12 mg/dL (8-26) Creatinine 0.7 mg/dL (0.7-1.3) Estimated GFR (Cockcroft-Gault) 115.0 Glucose Level 107 mg/dL (70-99) Calcium Level 8.5 mg/dL (8.5-10.1) Allergies Allergies Coded Allergies Type Severity Reaction Last Updated Verified No Known Drug Allergies 02/01/16 No Disposition/Orders: D/C to Home Justicifation of Admission Dx: Justifications for Admission: Justification of Admission Dx: Yes MARY DOMINGUEZ MD Oct 03, 2020 10:50
[2020-10-03] MEDS ORDERED: AMLO-186 PO (10:53)
[2020-10-03] MEDS ORDERED: PANT40TA77 PO (10:53)
[2020-10-03] MEDS ORDERED: NITR0.4T24 SL ×2 (10:53→13:57)
[2020-10-03] MEDS ORDERED: MAG30ORA2 PO (10:53)
[2020-10-03] MEDS ORDERED: ASPI-886 PO (10:53)
[2020-10-03] MEDS ORDERED: ACET325T21 PO (10:53)
[2020-10-03] MEDS ORDERED: DOCU-153 PO (10:53)
--- NOTE | 2020-10-03 10:54 | DISCH ---
DISCHARGE INSTRUCTIONS Condition on Discharge Condition on Discharge: Stable Activity After Discharge Activity Instructions for Disc: Activity as tolerated Lifting Instructions after Dis: No heavy lifting, No pulling or pushing Driving Instructions after Dis: Do not drive today Weight Bearing Status after Di: As tolerated Diet after Discharge Diet after Discharge: Cardiac Diet Texture: Regular Liquid Texture: Thin Liquid Swallowing Supervision: None needed Checks after Discharge Checks after discharge: Check blood press - daily, Check your Temp as needed, Weigh Yourself Daily Contacting the DR. after DC Call your doctor for: If your condition worsens Follow-Up Follow up with: Dr. Shaffer (cardiology) 11/26/20 at 9:15am [phone] Follow Up With: PCP in 1 week Treatment/Equipment after DC Adaptive Equipment Issued: None MARY DOMINGUEZ MD Oct 03, 2020 10:54
--- NOTE | 2020-10-03 11:24 | NUR ---
SS following up with discharge planning. SS reviewed pt chart and discussed with pt RN. Pt is currently on room air. Discharge order on the chart for home with self care.
[2020-10-03] MEDS ORDERED: amLODIPine BESYLATE 5 MG TABLET PO ONE (12:00)
--- NOTE | 2020-10-03 13:55 | PDOC ---
YOSHI GAYTAN ACCOUNTS EXECUTIVE 10/03/20 1355: CARDIO Progress Notes Date and Time Date of Service 10/03/20 Time of Evaluation 1210 Subjective Subjective: No Chest Pain, No shortness of breath, No Palpitations, No Dizziness Comments: stayed overngiht due to hypertension Vitals Vitals Vital Signs Date Time Temp Pulse Resp B/P (MAP) Pulse Ox O2 Delivery O2 Flow Rate FiO2 10/03/20 12:05 87 186/99 10/03/20 10:23 97.8 18 97 BiPAP/CPAP 97.8 Weight Weight [ ] Input and Output Intake and Output Intake and Output 10/03/20 07:00 Intake Total 1560 ml Balance 1560 ml Intake Oral 1560 ml # Voids 3 Laboratory Labs Laboratory Tests Test 10/03/20 06:10 Sodium Level 142 mmol/L (136-145) Potassium Level 3.6 mmol/L (3.5-5.1) Chloride Level 104 mmol/L (98-107) Carbon Dioxide Level 26 mmol/L (21-32) Anion Gap 12 (6-14) Blood Urea Nitrogen 12 mg/dL (8-26) Creatinine 0.7 mg/dL (0.7-1.3) Estimated GFR (Cockcroft-Gault) 115.0 Glucose Level 107 mg/dL (70-99) Calcium Level 8.5 mg/dL (8.5-10.1) Physical Exam HEENT: Neck Supple W Full Motion Chest: Symmetric LUNGS: Clear to Auscultation Heart: S1S2, RRR Abdomen: Soft N/T, Other (obese) Extremities: No Edema Neurology: alert, oriented, follow commands Assessment Assessment 1. Chest pain, atypical. AMI ruled out. Most probable secondary to #2. Echo with preserved LV systolic function, no WMA 2. Hypertensive urgency; remains labile 3. Hyperlipidemia; statin therapy. LDL 104 4. DAVONTE with CPAP 5. Obesity 6. H/o tobaccoism with recent remission Recommendations ASA, statin therapy Continue losartan. Increase amlodipine Add coreg Outpatient ischemic evaluation as arranged Home BP monitoring. Is to reports if SBP consistently > 160 Supportive care Follow up in our office with Dr. Shaffer as scheduled Justicifation of Admission Dx: Justifications for Admission: Justification of Admission Dx: Yes LKAESHA SHAFFER MD 10/04/20 0803: CARDIO Progress Notes Plan Plan Late entry for 10/03/20 Pt. seen and examined. Agree with above COLLABORATIVE TEACHER note. Supportive care. YOSHI GAYTAN APRN Oct 03, 2020 13:55 LAKESHA SHAFFER MD Oct 04, 2020 08:03
[2020-10-03] MEDS ORDERED: CARV6.25 PO (13:57)
[2020-10-03 14:07] VITALS: BP_SYST 172; BP_SYST 200; BP_DIAS 86; BP_DIAS 94
[2020-10-03 14:34] VITALS: BP 188/93
[2020-10-03] MEDS ORDERED: CARVEDILOL 6.25 MG TABLET. PO SCH (15:00)
[2020-10-03 15:02] VITALS: BP 156/86
--- NOTE | 2020-10-03 16:30 | NUR ---
Discharge Note: LD BAIN S [address] [place] [address] Discharge instructions and discharge home medications reviewed with Patient and a copy given. All questions have been answered and understanding verbalized. The following instructions and handouts were given: discharge instructions, follow up with cardiology/MPI, medication education, HTN education, CP education. Discontinued lines and drains: Peripheral IV intact. Patient discharged to Home or Self Care with Family Member via Wheelchair at 1630.
== END 2020-10-03 16:35 | disposition home or self-care (01) ==
LOC: ER 12:12 → ED HOLD 15:48 → 2 NORTH 19:22
PROVIDERS: ADMIT Family Medicine; ATTEND Family Medicine
DX: R07.89 Other chest pain (principal); I16.0 Hypertensive urgency; E66.01 Morbid (severe) obesity due to excess calories; G47.33 Obstructive sleep apnea (adult) (pediatric); K21.9 Gastro-esophageal reflux disease without esophagitis; K76.0 Fatty (change of) liver, not elsewhere classified; E11.9 Type 2 diabetes mellitus without complications; J98.11 Atelectasis; N28.1 Cyst of kidney, acquired; M19.90 Unspecified osteoarthritis, unspecified site; E78.00 Pure hypercholesterolemia, unspecified; Z87.891 Personal history of nicotine dependence; Z98.890 Other specified postprocedural states; Z68.42 Body mass index [BMI] 45.0-49.9, adult
CPT/HCPCS: 36415; 71045; 71275; 76770; 80048; 80053; 80061; 83690; 83735; 83880; 84443; 84484; 85025; 93005; 93306; 96361; 96372; 96374; 96375; 96376; 99285; G0378; J0360; J1650; J2405; J7030; Q9956; Q9967; G0379

== ENCOUNTER 2021-05-19 14:12 | Emergency (ER) | payer OTHER ==
[~2021-05-19] VITALS: Ht 177.8 cm; Wt 144.5 kg
[~2021-05-19 14:12] MED LIST changes: +ACET325T21 PO; +AMLO-186 PO; +ASPI-886 PO; +CARV6.25 PO; +DICL75TA PO; +DOCU-148 PO; +LOSA100T14 PO; +MAG30ORA2 PO; +NITR0.4T24 SL; +PANT40TA77 PO; +PRAV40TA2 PO
--- NOTE | 2021-05-19 15:01 | EKG ---
[facility] [address] [place] [address] Test Date: 2021-05-19 Test Time: 14:24:04 Pat Name: LD BAIN Department: Room: Gender: M Short Haul Driver: : 1960 Requested By: ARIEL ZUNIGA Order Number: [id number] Reading MD: Measurements Intervals [place] Rate: 83 P: -37 WA: 166 QRS: 16 QRSD: 88 T: 34 QT: 362 QTc: 426 Interpretive Statements SINUS RHYTHM NO SPECIFIC ECG ABNORMALITIES RI6.02 No previous ECG available for comparison
--- NOTE | 2021-05-19 15:01 | RAD ---
Single AP view of the chest. Comparison: 10/01/2020. Indication: Shortness of air Findings: The heart is enlarged but stable. There is no pneumothorax or effusion. Mild pulmonary vascular chemo estion. Impression: 1. Cardiomegaly and mild pulmonary vascular congestion suggests volume overload. Electronically signed by: Noe Bullock MD (05/19/2021 2:59 PM) [facility]
[2021-05-19 15:15] LABS: BASO # 0.2 x10^3/uL (0.0-0.2); BASO % 3 % (0-3); EOS # 0.5 x10^3/uL (0.0-0.7); EOS % 6 % (0-3); HEMATOCRIT 43.3 % (39.0-53.0); HEMOGLOBIN 14.8 g/dL (13.0-17.5); LYMPH % 24 % (24-48); MEAN CORPUSCULAR HEMOGLOBIN 30 pg (25-35); MEAN CORPUSCULAR HGB CONC 34 g/dL (31-37); MEAN CORPUSCULAR VOLUME 88 fL (79-100); MONO # 0.8 x10^3/uL (0.0-1.1); MONO % 9 % (0-9); NEUT # 4.9 x10^3/uL (1.8-7.7); NEUT % 58 % (31-73); PLATELET COUNT 232 x10^3/uL (140-400); RED BLOOD COUNT 4.91 x10^6/uL (4.30-5.70); RED CELL DISTRIBUTION WIDTH 13.8 % (11.5-14.5); WHITE BLOOD COUNT 8.4 x10^3/uL (4.0-11.0)
--- NOTE | 2021-05-19 15:27 | PHYS DOC ---
Past Medical History Past Medical History: High Cholesterol, Hypertension Additional Past Medical Histor: obesity and vertigo (ARIEL ZUNIGA SALT GRINDER) Past Surgical History: Other Additional Past Surgical Histo: r rotator cuff, carpal tunnel bilat, knee scope, and R 5th toe rem (ARIEL ZUNIGA SALT GRINDER) Smoking Status: Never Smoker Alcohol Use: Occasionally Drug Use: None (ARIEL ZUNIGA SALT GRINDER) General Adult EDM: Chief Complaint: SHORTNESS OF BREATH HPI: HPI: Patient is a 61 year old patient with history of hypertension, high cholesterol, former smoker, who presents to the ED today complaining of shortness of breath and dizziness. Patient said the shortness of breath and dizziness about chronic but the shortness of breath got worse this morning. He used his inhaler and his symptoms improved. He states he came to the ED to be evaluated to make sure there is nothing else going on. He states the dizziness is chronic and occurs intermittently in the mornings. He is on meclizine which he took and symptoms were gone. Denies any chest pain. Denies any fever. Denies any unusual coughing or congestion. Reports he received a [employer]ell[employer] Covid vaccine this year. He states he cannot have any nasal swabs for Covid of influenza because he has nasal deformity (ARIEL ZUNIGA SALT GRINDER) Review of Systems: Review of Systems: Constitutional: Denies fever or chills. [] Eyes: Denies change in visual acuity. [] HENT: Denies nasal congestion or sore throat. [] Respiratory: Reports shortness of breath. Denies cough Cardiovascular: Denies chest pain or edema. [] GI: Denies abdominal pain, nausea, vomiting, bloody stools or diarrhea. [] : Denies dysuria. [] Musculoskeletal: Denies back pain or joint pain. [] Integument: Denies rash. [] Neurologic: Reports dizziness. Denies headache, focal weakness or sensory changes. [] Psychiatric: Denies depression or anxiety. [] (ARIEL ZUNIGA SALT GRINDER) Heart Score: C/O Chest Pain: N/A Risk Factors: Risk Factors: DM, Current or recent (<one month) smoker, HTN, HLP, family history of CAD, obesity. Risk Scores: Score 0 - 3: 2.5% MACE over next 6 weeks - Discharge Home Score 4 - 6: 20.3% MACE over next 6 weeks - Admit for Clinical Observation Score 7 - 10: 72.7% MACE over next 6 weeks - Early Invasive Strategies (ARIEL ZUNIGA SALT GRINDER) Allergies: Allergies: Allergies Coded Allergies Type Severity Reaction Last Updated Verified No Known Drug Allergies 02/01/16 No (ARIEL ZUNIGA SALT GR[employer]ER) Physical Exam: PE: Constitutional: Obese patient. Well developed, well nourished, no acute distress, non-toxic appearance. [] HENT: Normocephalic, atraumatic, bilateral external ears normal, oropharynx moist, no oral exudates, nose normal. [] Eyes: PERRLA, EOMI, conjunctiva normal, no discharge. [] Neck: Normal range of motion, no tenderness, supple, no stridor. [] Cardiovascular:Heart rate regular rhythm, no murmur [] Lungs & Thorax: Bilateral breath sounds clear to auscultation [] Abdomen: Bowel sounds normal, soft, no tenderness, no masses, no pulsatile masses. [] Skin: Warm, dry, no erythema, no rash. [] Back: No tenderness, no CVA tenderness. [] Extremities: No tenderness, no cyanosis, no clubbing, ROM intact, no edema. [] Neurologic: Alert and oriented X 3, normal motor function, normal sensory function, no focal deficits noted. Cranial nerves II through XII intact Psychologic: Affect normal, judgement normal, mood normal. [] (ARIEL ZUNIGA SALT GRINDER) Current Patient Data: Labs: Laboratory Tests Test 05/19/21 15:00 White Blood Count 8.4 x10^3/uL (4.0-11.0) Red Blood Count 4.91 x10^6/uL (4.30-5.70) Hemoglobin 14.8 g/dL (13.0-17.5) Hematocrit 43.3 % (39.0-53.0) Mean Corpuscular Volume 88 fL (79-100) Mean Corpuscular Hemoglobin 30 pg (25-35) Mean Corpuscular Hemoglobin Concent 34 g/dL (31-37) Red Cell Distribution Width 13.8 % (11.5-14.5) Platelet Count 232 x10^3/uL (140-400) Neutrophils (%) (Auto) 58 % (31-73) Lymphocytes (%) (Auto) 24 % (24-48) Monocytes (%) (Auto) 9 % (0-9) Eosinophils (%) (Auto) 6 % (0-3) H Basophils (%) (Auto) 3 % (0-3) Neutrophils # (Auto) 4.9 x10^3/uL (1.8-7.7) Lymphocytes # (Auto) 2.0 x10^3/uL (1.0-4.8) Monocytes # (Auto) 0.8 x10^3/uL (0.0-1.1) Eosinophils # (Auto) 0.5 x10^3/uL (0.0-0.7) Basophils # (Auto) 0.2 x10^3/uL (0.0-0.2) Laboratory Tests 05/19/21 15:00 Vital Signs: Vital Signs Date Time Temp Pulse Resp B/P (MAP) Pulse Ox O2 Delivery O2 Flow Rate FiO2 05/19/21 14:55 80 16 172/108 (129) 95 Room Air 05/19/21 14:15 99.5 99.5 (ARIEL ZUNIGA [facility]) EKG: EKG: [] (ARIEL ZUNIGA [facility]) Radiology/Procedures: Radiology/Procedures: []PROCEDURE: CT ANGIOGRAPHY CHEST CTA CHEST INDICATION: SOA PE protocol Comparison: Chest radiograph 05/19/2021. TECHNIQUE: Following the uneventful administration of intravenous contrast, 100 cc Omnipaque 350, axial CT sections were obtained through the lungs and upper abdomen. Multiplanar reconstructions and MIP images were obtained. PQRS compliance statement: One or more of the following individualized dose reduction techniques were util ized for this examination: 1. Automated exposure control 2. Adjustment of the mA and/or kV according to patient size 3. Use of iterative reconstruction technique FINDINGS: Pulmonary arteries: No evidence of pulmonary thromboembolic disease Lungs and Airways: No pulmonary mass or consolidation. No abnormality of the central airways. Pleura: The pleural spaces are normal. Heart and Mediastinum: The visualized thyroid is normal in size and attenuation. No axillary or supraclavicular lymphadenopathy. No mediastinal, hilar or retrocrural lymphadenopathy. Cardiomegaly. No pericardial effusion. Normal caliber thoracic aorta. Abdomen: Hepatic steatosis. Bones and Soft Tissues: Degenerative changes of the spine. IMPRESSION: 1. No evidence of pulmonary thromboembolic disease. 2. No pulmonary mass or consolidation Electronically signed by: Deborah Madrigal MD (05/19/2021 6:28 PM) [facility] DICTATED and SIGNED BY: DEBORAH MADRIGAL MD DATE: 05/19/21 [id number] PROCEDURE: CT HEAD WO CONTRAST PQRS Compliance Statement: One or more of the following individualized dose reduction techniques were utilized for this examination: 1. Automated exposure control 2. Adjustment of the mA and/or kV according to patient size 3. Use of iterative reconstruction technique CT HEAD WITHOUT CONTRAST History: Reason: dizziness / Spl. Instructions: / History: Comparison: CT head without contrast October 05, 2010. Procedure: Axial images are obtained of the head from the skull base through the vertex without IV contrast. Findings: The ventricles and sulci are normal for the patient's age. No mass-effect, midline shift, hemorrhage, extra-axial fluid collection, or obvious acute infarction is identified. Basilar cisterns are patent. Bone windows demonstrate no acute calvarial abnormality. Mild mucosal thickening bilateral ethmoid sinuses. The other visualized paranasal sinuses are clear. Mastoid air cells are well aerated. IMPRESSION: No acute intracranial abnormality. Electronically signed by: Paul Gonzalez MD (05/19/2021 4:41 PM) [facility] DICTATED and SIGNED BY: PAUL GONZALEZ MD DATE: 05/19/21 [id number] 0 (ARIEL ZUNIGA APRN) Course & Med Decision Making: Course & Med Decision Making Pertinent Labs and Imaging studies reviewed. (See chart for details) This is a 61 male presenting to the ED today complaining of chronic dizziness and shortness of breath. Patient use meclizine and his inhaler with some improvement to his symptoms. Vitals on arrival to the ED temperature 99.5, heart rate 83, blood pressure 167/99, O2 sats 97% on room air CT of the head is negative for any acute findings. Chest x-ray negative for pneumonia. EKG is negative, CBC CMP with nothing really acute, 2 troponins were done which were negative. BNP is not elevated. Results were communicated to patient, he states his daughter is a registered nurse at the [employer] and was asking if patient can have VQ scan to rule out PE. Informed patient he can have a CTA chest but V/Q scan is not the most accurate way to rule out PE. CTA chest is negative for any acute findings. Patient was discharged to home (ARIEL ZUNIGA APRN) Course & Med Decision Making Patients Care and treatment plan provided by ER Nurse Practitioner. I was available for consult. Patient's chart reviewed. (SUSANA CALLE DO) [employer] Disclaimer: Dragon Disclaimer: This electronic medical record was generated, in whole or in part, using a voice recognition dictation system. (ARIEL ZUNIGA APRN) Departure Departure Impression: Primary Impression: Shortness of breath Additional Impression: Dizziness Disposition: HOME / SELF CARE / HOMELESS Condition: STABLE Referrals: OG HOPSON Jr, MD (PCP) Follow-up in 1week Patient Instructions: Dizziness, [id number], Shortness of Breath, [id number] Additional Instructions: You were evaluated in the emergency room for dizziness or shortness of breath. Your CT of the chest is negative for any acute findings. Your labs are negative for any acute findings. Please use a your inhaler as needed for shortness of breath. Take meclizine for dizziness. Follow-up with your doctor next week ARIEL ZUNIGA APRN May 19, 2021 15:27 SUSANA CALLE DO May 20, 2021 03:41
[2021-05-19 15:47] LABS: CALCIUM 9.2 mg/dL (8.5-10.1); CREATININE 0.8 mg/dL (0.7-1.3); GFR 98.3; POTASSIUM 3.6 mmol/L (3.5-5.1)
[2021-05-19 15:50] LABS: ALBUMIN 3.8 g/dL (3.4-5.0); MAGNESIUM 2.4 mg/dL (1.8-2.4); TOTAL BILIRUBIN 0.5 mg/dL (0.2-1.0); TOTAL PROTEIN 7.6 g/dL (6.4-8.2)
--- NOTE | 2021-05-19 16:43 | RAD ---
PQRS Compliance Statement: One or more of the following individualized dose reduction techniques were utilized for this examinat ion: 1. Automated exposure control 2. Adjustment of the mA and/or kV according to patient size 3. Use of iterative reconstruction technique CT HEAD WITHOUT CONTRAST History: Reason: dizziness / Spl. Instructions: / History: Comparison: CT head without contrast October 05, 2010. Procedure: Axial images are obtained of the head from the skull base through the vertex without IV co ntrast. Findings: The ventricles and sulci are normal for the patient's age. No mass-effect, midline shift, hemorrhage, extra-axial fluid collection, or obvious acute infarction is identified. Basilar cisterns are patent. Bone windows demonstrate no acute calvarial abnormality. Mild mucosal thickening bilateral ethmoid sinuses. The other visualized paranasal sinuses are clear. Mastoid air cells are well aerated. IMPRESSION: No acute intracranial abnormality. Electronically signed by: Paul Gonzalez MD (05/19/2021 4:41 PM) [facility]
[2021-05-19] MEDS: IOHEXOL 350 MG/ML 100 ML VIAL. IV ONE (18:09)
[2021-05-19] MEDS ORDERED: CONTRAST GIVEN. MC PRN (18:15)
[2021-05-19] MEDS: cloNIDine HCL 0.1 MG TABLET PO ONE (18:28)
[2021-05-19] MEDS: LABETALOL 20 MG/4 ML DISP.SYRIN. IVP ONE (18:29)
--- NOTE | 2021-05-19 18:30 | RAD ---
CTA CHEST INDICATION: SOA PE protocol Comparison: Chest radiograph 05/19/2021. TECHNIQUE: Following the uneventful administration of intravenous contrast, 100 cc Omnipaque 350, axi al CT sections were obtained through the lungs and upper abdomen. Multiplanar reconstructions and MIP images were obtained. PQRS compliance statement: One or more of the following individualized dose reduction techniques were utilized for this examinat ion: 1. Automated exposure control 2. Adjustment of the mA and/or kV according to patient size 3. Use of iterative reconstruction technique FINDINGS: Pulmonary arteries: No evidence of pulmonary thromboembolic disease Lungs and Airways: No pulmonary mass or consolidation. No abnormality of the central airways. Pleura: The pleural spaces are normal. Heart and Mediastinum: The visualized thyroid is normal in size and attenuation. No axillary or supra clavicular lymphadenopathy. No mediastinal, hilar or retrocrural lymphadenopathy. Cardiomegaly. No pe ricardial effusion. Normal caliber thoracic aorta. Abdomen: Hepatic steatosis. Bones and Soft Tissues: Degenerative changes of the spine. IMPRESSION: 1. No evidence of pulmonary thromboembolic disease. 2. No pulmonary mass or consolidation Electronically signed by: Johnie Madrigal MD (05/19/2021 6:28 PM) [facility]
[2021-05-19 19:05] VITALS: BP 158/105
== END 2021-05-19 19:17 | disposition home or self-care (01) ==
LOC: ER 14:12
DX: R06.02 Shortness of breath (principal); R42 Dizziness and giddiness; I10 Essential (primary) hypertension; E78.00 Pure hypercholesterolemia, unspecified
CPT/HCPCS: 36415; 70450; 71045; 71275; 80053; 83605; 83735; 83880; 84145; 84484; 85025; 87040; 93005; 96374; 99285; J3490; Q9967